=== PATIENT | male | born 1960 | race Caucasian/White ===

== ENCOUNTER 2020-01-06 18:53 | Emergency (ER) | payer MEDICARE, OTHER, SELFPAY ==
[2020-01-06 19:19] VITALS: BP 150/85; PULSE 109; RESP 18; TEMP 37.1; O2SAT 100; BMI 24.0
--- NOTE | 2020-01-06 21:11 | ED_ITS ---
HPI - General Adult General Chief complaint: General Medical Stated complaint: fever, diarrhea Time Seen by Provider: 01/06/20 21:11 Source: patient Mode of arrival: ambulatory Limitations: no limitations History of Present Illness HPI narrative: pt with no significant pmhx been having nausea for last 3 days, vomited an had few diarrhea 2 days ago, eating well now , no abd pain, no one sick with covid, no resp symptoms , had low grade fever Onset (ago): day(s) (3) Related Data Previous Rx's Medication Instructions Recorded ondansetron 4 mg PO Q6H PRN #10 tab 01/06/20 Allergies Allergy/AdvReac Type Severity Reaction Status Date / Time No Known Allergies Allergy Unverified 01/05/20 16:08 Review of Systems Review of Systems: Yes all other systems are reviewed and are negative Constitutional: Constitutional: Reports body ache(s) and Reports fever(s) ENT: Reports system reviewed and no additional complaints, except as documented Cardiovascular: Cardiovascular: Reports no additional cardiovascular complaints Respiratory: Respiratory: Reports no additional respiratory complaints Gastrointestinal: Gastrointestinal: Reports as per HPI Genitourinary: Genitourinary: Reports no additional male genitourinary complaints Musculoskeletal: Musculoskeletal: Reports no additional musculoskeletal complaints [facility] Past Medical History Medical History GERD (gastroesophageal reflux disease) HTN (hypertension) Social History Social History Alcohol intake: never Smoking Status: Current every day smoker Use of substances other than those prescribed or required for medical reasons: No Advance Directives: No Advance Directives Information Provided: No Physical Exam Vital Signs: Vital Signs: Last Vital Signs Temp 98.8 F 01/06/20 21:41 Pulse 95 01/06/20 21:41 Resp 18 01/06/20 21:41 BP 147/87 H 01/06/20 21:41 Pulse Ox 96 01/06/20 21:41 Body Mass Index 24.0 Const: General: cooperative, healthy appearing and comfortable Nutritional Appearance: average body habitus Orientation/consciousness: oriented to person, oriented to place and oriented to time Limitations: no limitations HENMT: Head: Yes normal to inspection Ears: hearing grossly normal bilaterally General nose exam: Normal external nose present Face and sinus: Yes normal facial exam Mouth: Normal oral and palatal mucosa present Resp: Effort & Inspection: normal respiratory effort Auscultation: clear to auscultation bilaterally Cardio: Palpation: normal PMI Rate: regular rate Rhythm: regular rhythm Heart sounds: S1 normal heart sound present and S2 normal heart sound present GI: Palpation (GI): Soft to palpation, nontender, no guarding, hepatosplenomegaly present, no hernias and no masses Auscultation: normal bowel sounds Rectal Exam - Male: Yes deferred : General: Yes no CVA tenderness Back/Spine/Pelvis: Back: no CVA tenderness Neuro: General: oriented to person, oriented to place and oriented to time Course Course Course Narrative: patient with mild symptoms COVID negative discharge him home on [facility] Medical Decision Making Lab Data Labs: Lab Results 01/06/20 Range/Units 21:39 COVID-19 ([facility]) Negative (Negative) COVID-19 Clin Com See Note Discharge Plan Discharge Clinical Impression: Gastroenteritis Patient Disposition: Home, Self-Care Instructions: Acute Nausea and Vomiting (ED) Additional Instructions: drink plenty of fluids Prescriptions: New ondansetron 4 mg tablet,disintegrating 4 mg PO Q6H PRN (Reason: nausea and vomiting) Qty: 10 RF: 0 Interventions: ED Discharge Assessment Last Done: 01/06/20 22:37 Discharge Date/Time: 01/06/20 22:37
[2020-01-06 21:41] VITALS: BP 147/87; PULSE 95; RESP 18; TEMP 37.1; O2SAT 96
[2020-01-06 22:14] LABS: COVID-19 Test Negative (Negative)
== END 2020-01-06 22:37 | disposition home or self-care (01) ==
PROVIDERS: Emergency Provider Internal Medicine; PCP Internal Medicine
DX: K52.9 Noninfective gastroenteritis and colitis, unspecified (principal); R50.9 Fever, unspecified; Z79.899 Other long term (current) drug therapy; F17.200 Nicotine dependence, unspecified, uncomplicated; Z71.6 Tobacco abuse counseling; Z20.828 Contact with and (suspected) exposure to other viral communicable diseases
CPT/HCPCS: 87635; 99284

== ENCOUNTER 2020-01-09 08:40 | Day surgery (SDC) | payer MEDICARE, OTHER, SELFPAY ==
[2020-01-07 09:52] VITALS: BMI 24.3
[2020-01-09 09:26] VITALS: BP 153/92; PULSE 80; RESP 18; TEMP 36.1; O2SAT 97
[2020-01-09 11:06] VITALS: BP 112/77; PULSE 88; RESP 16; TEMP 36.6; O2SAT 97
--- NOTE | 2020-01-09 11:14 | PC.NURSE ---
1111 DR BRAN IN AT BEDSIDE SPEAKING WITH PT RE EXAM PT WAKING MORE WARM BLANKET GIVEN COOL, DENIES CRAMPING AT PRESENT
[2020-01-09 11:20] VITALS: BP 123/96; PULSE 80; RESP 16; O2SAT 99
--- NOTE | 2020-01-09 11:21 | PM.OP ---
Brief Operative Note Date of Service: 01/09/20 Pre-op diagnosis: Screening Post-op diagnosis: other (Diverticulosis, Internal hemorrhoids) Procedure: Colonoscopy to the cecum and TI Surgeon: Leonidas Box Anesthesia: MAC Estimated blood loss (mL): 0 Pathology: none sent Condition: stable Disposition: PACU
--- NOTE | 2020-01-09 11:34 | PC.NURSE ---
1128 AWAKE ALERT NO TYLENOL AVAILABLE FOR [facility] PLAN TO HAVE A COFFEE IN DISCH. MONITORS AND IVF DC'D ASST OOB TO CH STEADY, IV DC'D MUCH PRESSURE TO CONTROL BLEEDING DRESSED SELF AT BS CALL LOVE IN REACH REPORT TO SANYA KINNEY FOR TRANSFER TO DC
--- NOTE | 2020-01-09 11:42 | OP_ITS ---
SURGEON: Leonidas Box MD INDICATIONS: The patient presents for evaluation of personal history of tubular adenomas of the colon and colorectal cancer screening. Full consent has been obtained from him for the procedure, including risks of bleeding and perforation. PREOPERATIVE DIAGNOSIS: POSTOPERATIVE DIAGNOSIS: PROCEDURE PERFORMED: Colonoscopy to the cecum and terminal ileum. ESTIMATED BLOOD LOSS: COMPLICATIONS: ANESTHESIA: Monitored anesthesia care. ASSISTANTS: SPECIMENS: PREOPERATIVE DIAGNOSES: Colorectal cancer screening and personal history of tubular adenomas of the colon. POSTOPERATIVE DIAGNOSES: Colorectal cancer screening and personal history of tubular adenomas of the colon, diverticulosis, and internal hemorrhoids. DESCRIPTION OF PROCEDURE: The patient was placed in the left lateral decubitus position. The digital rectal exam revealed no abnormalities. The Olympus video pediatric colonoscope was entered into the rectum and advanced easily to the cecum. Once in the cecum, I did identify normal-appearing cecal pouch with appendiceal orifice and a normal-appearing ileocecal valve. The terminal ileum was cannulated and appeared normal. The scope was withdrawn back into the colon. The entire cecum and ileocecal valve appeared normal. The scope was slowly withdrawn assessing all mucosal surfaces carefully. Preparation was excellent. I did not visualize any sign of polyps, colitis, nor angiodysplasia. There was a mild amount of sigmoid diverticulosis. In the rectum, scope was retroflexed visualizing internal hemorrhoids, but no other pathology. The rectal mucosa appeared normal. The scope was straightened and withdrawn from the patient. He tolerated the procedure well and was returned to the recovery area in stable condition. IMPRESSION: 1. Diverticulosis. 2. Internal hemorrhoids. PLAN: Given the previous history of tubular adenomas, I would recommend a followup colonoscopy in 5 years for further screening. He will otherwise see me on a p.r.n. basis. MD SHANTAL Bueno/PHILL / [id number]
--- NOTE | 2020-01-09 11:49 | HO.POSTANES ---
Post Anesthesia Evaluation Post Anesthesia Evaluation Vital Signs: Vital Signs Temp Pulse Resp BP Pulse Ox 01/09/20 11:20 97.8 F 80 16 123/96 H 99 01/09/20 11:06 97.8 F 88 16 112/77 97 01/09/20 09:26 96.9 F 80 18 153/92 H 97 Anesthesia: Monitored Mental Status: Awake Pain Control: Satisfactory Nausea/Vomiting: None Hydration: Adequate Anesthesia-Related Issues: No Anes. Related Issues
== END 2020-01-09 12:03 | disposition home or self-care (01) ==
PROVIDERS: PCP Internal Medicine; Visit Provider Internal Medicine
PROC: 0DJD8ZZ Inspection of Lower Intestinal Tract, Via Natural or Artificial Opening Endoscopic (ICD-10-PCS; CPT 45378; principal; 2020-01-09 10:20)
DX: Z12.11 Encounter for screening for malignant neoplasm of colon (principal); Z86.010 Personal history of colon polyps; K57.30 Diverticulosis of large intestine without perforation or abscess without bleeding; K64.8 Other hemorrhoids; K21.9 Gastro-esophageal reflux disease without esophagitis; I10 Essential (primary) hypertension; Q85.00 Neurofibromatosis, unspecified; R51.9 Headache, unspecified; Z79.82 Long term (current) use of aspirin; F17.210 Nicotine dependence, cigarettes, uncomplicated; Z79.899 Other long term (current) drug therapy
CPT/HCPCS: G0105

== ENCOUNTER 2020-06-12 11:51 | Outpatient (REF) | payer MEDICARE, OTHER, SELFPAY ==
[2020-06-12 13:53] LABS: MANUAL DIFF FLAG NO
[2020-06-12 13:55] LABS: Glucose Urine UA NEG (NEG); Leukocyte Esterase Urine NEG (NEG); Nitrite Urine NEG (NEG); Specific Gravity - Urine 1.015 (1.005-1.025); Urine Blood 3+ (NEG); Urine Ketones NEG (NEG); Urine Protein NEG (NEG-TRACE)
[2020-06-12 13:57] LABS: Basophils Absolute Auto 0.1 X10*3/uL (0.0-0.2); Basophils Percent Auto 0.9 % (0-2); Eosinophils Absolute Auto 0.2 X10*3/uL (0.0-0.4); Eosinophils Percent Auto 1.9 % (0-4); Hematocrit 39.5 % (42-52); Hemoglobin 12.9 g/dl (14.0-18.0); Imm Gran Abs Auto 0.05 X10*3/uL (0.00-0.03); Imm Gran Pct Auto 0.5 % (0.0-0.4); Lymphocytes Absolute Auto 1.6 X10*3/uL (1.2-4.9); Mean Corpuscular HGB Conc 32.7 g/dl (31.0-36.0); Mean Corpuscular Hemoglobin 31.2 pg (27.0-33.0); Mean Corpuscular Volume 95.6 fL (80-98); Mean Platelet Volume 10.4 fL (9.4-12.4); Monocytes Absolute Auto 0.8 X10*3/uL (0.1-1.2); Monocytes Percent Auto 7.4 % (2-11); Neutrophils Absolute Auto 7.7 X10*3/uL (2.0-8.3); Neutrophils Percent Auto 74.3 % (45-73); Platelet Count 338 X10*3/uL (160-400); Red Blood Count 4.13 X10*6/uL (4.60-5.80); Red Cell Distribution Width 12.6 % (11.0-16.0); White Blood Count 10.4 X10*3/uL (4.8-10.8)
[2020-06-12 13:58] LABS: Appearance Urine CLEAR; Color Urine YELLOW
[2020-06-12 14:02] LABS: RBC Urine 50-75 /HPF (0); WBC Urine 0-2 /HPF (0-4)
[2020-06-12 14:16] LABS: Alanine Aminotransferase 11 U/L (0-40); Alkaline Phosphatase 79 U/L (39-117); Anion Gap 13 (12-20); Aspartate Amino Transferase 10 U/L (5-37); Bilirubin Total 0.5 mg/dL (0.0-1.0); Blood Urea Nitrogen 10 mg/dL (9-16); Calcium 9.1 mg/dL (8.4-10.2); Carbon Dioxide 23 mmol/L (22-29); Chloride 106 mmol/L (96-108); Cholesterol 166 mg/dL; Estimated Glomerular Filt Rate > 60; Glucose Fasting 86 mg/dL (60-99); HDL Cholesterol 47 mg/dL; LDL Cholesterol Calculated 105 mg/dl; Potassium 4.3 mmol/L (3.3-5.1); Sodium 138 mmol/L (135-145); Total Protein 6.7 g/dL (6.5-8.0); Triglycerides 71 mg/dL
[2020-06-12 14:40] LABS: Prostate Specific Antigen Scr 0.57 ng/mL (<0.05-4.0)
== END 2020-06-12 11:52 | disposition home or self-care (01) ==
LOC: HO.LAB 11:51
PROVIDERS: PCP Internal Medicine; Visit Provider Internal Medicine
DX: I10 Essential (primary) hypertension (principal); K21.9 Gastro-esophageal reflux disease without esophagitis; K57.90 Diverticulosis of intestine, part unspecified, without perforation or abscess without bleeding; Z82.49 Family history of ischemic heart disease and other diseases of the circulatory system; Z12.5 Encounter for screening for malignant neoplasm of prostate
CPT/HCPCS: 36415; 80053; 80061; 81001; 84153; 85025

== ENCOUNTER 2021-07-10 | Outpatient (REF) | payer OTHER, SELFPAY ==
--- NOTE | ~2021-07-10 | XR_ITS ---
EXAMINATION: XR CHEST CLINICAL INFORMATION: Weight loss. Hypertension. COMPARISON: Chest radiograph dated from 02/26/2015. TECHNIQUE: 2 views of the chest were obtained. FINDINGS: Progression of interstitial thickening and scarring when compared to 2016. No focal consolidation. No pleural effusion or pneumothorax. Stable 0.6 cm nodule in the right apex. Questionable new 0.7 cm nodule in the right midlung zone. Symmetric nipple shadows. Normal appearance of the cardiomediastinal silhouette. No acute osseous abnormalities. The visualized upper abdomen is within normal limits. XR/XR chest 2V IMPRESSION: Worsening interstitial thickening and scarring with a questionable new nodularity in the right mid lung. Recommend correlation with a nonemergent elective chest CT. No focal consolidation. Clear pleural spaces.
[2021-07-10 12:12] LABS: MANUAL DIFF FLAG NO
[2021-07-10 13:50] LABS: Basophils Absolute Auto 0.1 X10*3/uL (0.0-0.2); Basophils Percent Auto 0.5 % (0-2); Eosinophils Percent Auto 0.3 % (0-4); Hematocrit 43.1 % (42.0-52.0); Hemoglobin 14.2 g/dl (14.0-18.0); Imm Gran Abs Auto 0.02 X10*3/uL (0.00-0.03); Imm Gran Pct Auto 0.2 % (0.0-0.4); Lymphocytes Absolute Auto 1.7 X10*3/uL (1.2-4.9); Lymphocytes Percent Auto 16.1 % (20-40); Mean Corpuscular HGB Conc 32.9 g/dl (31.0-36.0); Mean Corpuscular Hemoglobin 32.1 pg (27.0-33.0); Mean Corpuscular Volume 97.3 fL (80.0-98.0); Monocytes Absolute Auto 0.8 X10*3/uL (0.1-1.2); Monocytes Percent Auto 7.4 % (2-11); Neutrophils Percent Auto 75.5 % (45-73); Platelet Count 401 X10*3/uL (160-400); Red Blood Count 4.43 X10*6/uL (4.60-5.80); Red Cell Distribution Width 12.7 % (11.0-16.0); White Blood Count 10.6 X10*3/uL (4.8-10.8)
[2021-07-10 14:01] LABS: Appearance Urine HAZY; Color Urine YELLOW; Glucose Urine UA NEG (NEG); Leukocyte Esterase Urine NEG (NEG); Nitrite Urine NEG (NEG); PH 5.5 (5.0-8.0); Specific Gravity - Urine >= 1.030 (1.005-1.025); Urine Blood 3+ (NEG); Urine Ketones 15 MG/DL (NEG); Urine Protein TRACE MG/DL (NEG-TRACE)
[2021-07-10 14:07] LABS: Mucus Urine 1+ /LPF; Squamous Epithelial Cell Urine 1+ /LPF
[2021-07-10 14:08] LABS: WBC Urine 0 /HPF (0-4)
[2021-07-10 14:13] LABS: Alanine Aminotransferase 10 U/L (0-40); Albumin Level 4.6 g/dL (3.5-5.0); Alkaline Phosphatase 70 U/L (39-117); Anion Gap 16 (12-20); Aspartate Amino Transferase 9 U/L (5-37); Bilirubin Total 0.5 mg/dL (0.0-1.0); Blood Urea Nitrogen 22 mg/dL (9-16); C Reactive Protein 0.91 mg/dL (< or = 0.50); Calcium 9.9 mg/dL (8.4-10.2); Carbon Dioxide 19 mmol/L (22-29); Chloride 108 mmol/L (96-108); Estimated Glomerular Filt Rate > 60; Glucose Random 96 mg/dL (60-115); Potassium 4.5 mmol/L (3.3-5.1); Sodium 138 mmol/L (135-145); Total Protein 7.7 g/dL (6.5-8.0)
[2021-07-10 14:37] LABS: Free T4 (Free Thyroxine) 0.87 ng/dL (0.71-1.85); Prostate Specific Antigen 0.34 ng/mL (<0.05-4.0); Thyroid Stimulating Hormone 1.42 uIU/mL (0.32-4.0)
== END 2021-07-10 00:01 ==
LOC: HO.XRAY
PROVIDERS: PCP Internal Medicine; Visit Provider Internal Medicine
DX: R63.4 Abnormal weight loss (principal); I10 Essential (primary) hypertension; J44.9 Chronic obstructive pulmonary disease, unspecified; K21.9 Gastro-esophageal reflux disease without esophagitis; Z12.5 Encounter for screening for malignant neoplasm of prostate
CPT/HCPCS: 36415; 71046; 80053; 81001; 81003; 84153; 84439; 84443; 85025; 86140

== ENCOUNTER 2021-07-27 08:05 | Outpatient (REF) | payer OTHER, MEDICAID, SELFPAY ==
--- NOTE | ~2021-07-27 | CT_ITS ---
EXAMINATION: CT CHEST WITHOUT CONTRAST CLINICAL INFORMATION: Weight loss. Abnormal chest x-ray. COMPARISON: Previous chest x-ray most recent June 2021 TECHNIQUE: Multidetector volumetric CT imaging of the chest was done. Axial MIP volume rendering provided. Sagittal and coronal reformatted images were obtained. This CT examination was performed using dose optimization techniques as appropriate, variously including the following: *Automated exposure control *Adjustment of mA and/or kV according to patient size (this includes techniques or standardized protocols for targeted exams where dose is matched to indication/reason for exam; i.e. extremities or head) *Use of iterative reconstruction technique DLP: 175 mGy-cm FINDINGS: LUNGS: There is evidence of severe paraseptal emphysema with bullous changes. This is seen diffusely throughout the lungs but greatest in the upper lobes. There is also evidence of multiple small lung cysts. There is a linear abnormal parenchymal density seen in the left upper lobe. This has spicules that extend to the lateral pleural surface and adjacent pleural thickening. This has a 1 x 1.4 cm central nodular component for example axial image 103 series 7. This appears slightly low in attenuation. There is right apical pleural thickening. 1 mm calcified left upper lobe nodule axial image 314 series 7. No endobronchial or endotracheal lesion. MEDIASTINUM: The mediastinum is normal. PLEURA: There is mild pleural thickening adjacent to the parenchymal density in the left upper lobe. No pleural effusion. AXILLA: No chest wall mass or enlarged axillary lymph nodes. Multiple moles on the skin. UPPER ABDOMEN: See CT of the abdomen and pelvis. OSSEOUS STRUCTURES: Pectus deformity of the chest. CT/CT chest wo con IMPRESSION: Severe bullous emphysema and cystic changes. Abnormal linear parenchymal density in the left upper lobe with central nodular component measuring 1 x 1.4 cm. Comparison with old outside chest CT scans if available is recommended. Otherwise chest CT follow-up, tissue sampling or PET/CT scan should be considered. Fleischner guidelines were followed.
--- NOTE | ~2021-07-27 | CT_ITS ---
EXAMINATION: CT ABDOMEN AND PELVIS WITHOUT CONTRAST CLINICAL INFORMATION: Weight loss. Hematuria. COMPARISON: Previous CT from 2015 TECHNIQUE: Multidetector volumetric imaging was performed from the superior aspect of the liver through the pubic symphysis. Sagittal and coronal reformatted images were obtained on the technologist's workstation. This CT examination was performed using dose optimization techniques as appropriate, variously including the following: *Automated exposure control *Adjustment of mA and/or kV according to patient size (this includes techniques or standardized protocols for targeted exams where dose is matched to indication/reason for exam; i.e. extremities or head) *Use of iterative reconstruction technique DLP: 313 mGy-cm FINDINGS: LUNG BASES: See chest CT report from the same day. LIVER, GALLBLADDER, AND BILIARY TREE: There is a 1 cm low-attenuation lesion in the medial segment of the left lobe of the liver suggestive of a cyst. The liver is otherwise unremarkable. The gallbladder is unremarkable with no evidence of radiopaque gallstones, gallbladder wall thickening, or obvious pericholecystic inflammatory changes. PANCREAS: Unremarkable. SPLEEN: Unremarkable. ADRENAL GLANDS: Unremarkable. KIDNEYS AND URETERS: There are small bilateral renal stones, largest measuring 2 mm. There is a 3 x 4 cm cyst in the lower pole of the left kidney. Kidneys are otherwise normal. BLADDER: Not optimally distended. No bladder stone or mass is seen. GASTROINTESTINAL TRACT: There is stool throughout the colon suggestive of constipation. The small and large bowel are otherwise unremarkable. The appendix is unremarkable. ABDOMINAL WALL: There is a 1 x 1.5 cm cystic area seen in the right inguinal region. Appearance is questionable for a cystic degeneration lymph node versus a small hernia containing fluid. There are multiple subcutaneous skin lesions. These appear unchanged from previous exam. 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 LYMPH NODES: Normal. VASCULAR: There is evidence of atherosclerotic disease. No aneurysm is seen. PELVIC VISCERA: Unremarkable. OSSEOUS STRUCTURES: There is evidence of old trauma to the right iliac crest. CT/CT abdomen pelvis wo con IMPRESSION: Small nonobstructing bilateral renal stones. Left renal and liver cysts. Constipation. 1 x 1.5 cm cystic area in the right inguinal region, question representing a small hernia containing fluid versus cystic degeneration of the lymph node. This could be better assessed with ultrasound if clinically indicated. Stable on multiple skin lesions. Fleischner guidelines were followed.
== END 2021-07-27 08:06 | disposition home or self-care (01) ==
LOC: HO.CT 08:05
PROVIDERS: Visit Provider Internal Medicine
DX: R31.9 Hematuria, unspecified (principal); R63.4 Abnormal weight loss
CPT/HCPCS: 71250; 74176

== ENCOUNTER 2021-08-18 07:22 | Outpatient (REF) | payer OTHER, SELFPAY ==
--- NOTE | ~2021-08-18 | PE_ITS ---
EXAMINATION: Fluorine-18 FDG PET/CT Scan CLINICAL INDICATION: Initial treatment management. Left upper lobe 1.4 cm lung tumor. PROCEDURE: 69 minutes following the intravenous administration of 16.1 mCi of fluorine 18 FDG, images from the base of the skull to the mid thighs were obtained using a combined PET/CT scanner with CT scan based attenuation correction. No oral contrast was administered. No intravenous contrast was administered. Transverse, coronal, sagittal, and volume reconstruction projections were obtained. The patient's blood glucose as determined by a finger stick, was 92 mg/dl immediately prior to injection. Total CT exam dose-length product 197.10 mGy-cm * These CT images were obtained using dose optimization techniques as appropriate, variously including the following: Automated exposure control * Adjustment of mA and/or kV according to patient size (this includes techniques or standardized protocols for targeted exams where dose is matched to indication/reason for exam; i.e. extremities or head) * Use of iterative reconstruction technique COMPARISON: No previous PET/CT scan is available for comparison. The diagnostic CT scan of the chest, abdomen, and pelvis, dated 07/27/2021, is available for comparison. FINDINGS: (Slice numbers described in this report are numbered superiorly to inferiorly with slice #1 in the head) NECK AND VISUALIZED HEAD: No foci of abnormal FDG activity are noted. The distribution of FDG activity is physiological. There is no cervical lymphadenopathy. THORAX: There is a spiculated left upper lobe pulmonary nodule that measures 1.3 x 1.0 cm in largest transverse dimensions, and approximately 0.9 cm cephalocaudad. This shows weak FDG activity minimally more intense than adjacent background lung activity showing SUVmax 1.0, slice 68/267. Spiculations from this nodule extent to the lateral pleura. A nodule arises in the setting of severe emphysema. The appearance of the lungs is not significantly changed compared to the recent 07/27/[address] scan. There is no pleural or pericardial fluid, or pneumothorax. There is no mediastinal, supraclavicular, or axillary lymphadenopathy. ABDOMEN AND PELVIS: There are no foci of abnormal FDG activity in the abdomen or pelvis. Mild FDG activity is present diffusely throughout the gastrointestinal tract without a suspicious focal component. There is diverticulosis without evidence of diverticulitis. The hollow viscera are otherwise unremarkable. There is a 1.0 cm hypodense lesion in liver Couinaud segment 2, subtly photopenic on the FDG PET images and unchanged from the 07/27/2021 CT scan and likely a simple cyst. The liver is otherwise unremarkable. The gallbladder and spleen are unremarkable. There is a hypodense cyst laterally in the lower pole of the left kidney and this is markedly photopenic on the FDG PET images and also likely a simple cyst. Small subcentimeter bilateral calcified renal calculi are present, and these were better visualized on the 07/27/[address] scan but appear unchanged. The kidneys are otherwise unremarkable. The adrenal glands and pancreas are unremarkable. There is no retroperitoneal, mesenteric, pelvic or inguinal lymphadenopathy. The pelvic organs are unremarkable. MUSCULOSKELETAL: There are no foci of abnormal FDG activity in the osseous structures. There are mild degenerative changes in the spine. No suspicious sclerotic or lytic lesions are present. VASCULAR: A few scattered vascular calcifications are present. PET/PET CT fusion skull to thigh IMPRESSION: 1. A spiculated left upper lobe pulmonary nodule is present, and this shows only very weak FDG activity. While the weak FDG activity suggests a benign etiology, the spiculated appearance of this nodule on the CT images is suspicious for malignancy. Because approximately 10% of pulmonary malignancies demonstrate no abnormal FDG activity, if biopsy of this nodule is not obtained, followup with diagnostic CT scan in 3-6 months is recommended. 2. No additional abnormalities suspicious for metastatic or other malignant lesions are noted. 3. Small subcentimeter nonobstructing nephrolithiasis.
== END 2021-08-18 07:23 | disposition home or self-care (01) ==
LOC: HO.PET 07:22
PROVIDERS: PCP Internal Medicine Medical Oncology; Visit Provider Internal Medicine Medical Oncology
DX: Z13.89 Encounter for screening for other disorder (principal)

== ENCOUNTER → 2021-08-28 09:18 | Outpatient (BNVA) | payer OTHER, MEDICAID, SELFPAY | PROVIDERS: PCP Internal Medicine; Visit Provider Surgery | DX: R91.1 Solitary pulmonary nodule (principal); J43.8 Other emphysema; F17.210 Nicotine dependence, cigarettes, uncomplicated | CPT/HCPCS: 99202 ==

== ENCOUNTER 2021-09-02 14:11 | Outpatient (REF) | payer OTHER, MEDICAID, SELFPAY ==
--- NOTE | 2021-09-02 15:18 | PFT_ITS ---
Forced vital capacity 85%, FEV1 77%, FEV1/FVC ratio is 68. GSP23-46 58% and MVV 76%. Post bronchodilator therapy, there is a slight improvement in [id number]. Total lung capacity 96%. Residual volume 117%. Diffusion capacity is 37%, which is markedly decreased. CONCLUSION: There is evidence of mild obstructive airway disorder with slight improvement after bronchodilator therapy. Marked decrease in diffusion capacity, is somewhat out of proportion through the other findings. This may be due to nonspecific and non-pulmonary factors. Clinical correlation is recommended. Kylie García MD MSB/MODL / [id number]
== END 2021-09-02 14:12 | disposition home or self-care (01) ==
LOC: HO.RESP 14:11
PROVIDERS: PCP Internal Medicine; Visit Provider Surgery
DX: R91.1 Solitary pulmonary nodule (principal); J43.8 Other emphysema
CPT/HCPCS: 94060; 94727; 94729

== ENCOUNTER → 2021-09-07 09:33 | Outpatient (REF) | payer OTHER, MEDICAID, SELFPAY ==
--- NOTE | ~2021-09-07 | XR_ITS ---
EXAMINATION: XR CHEST CLINICAL INFORMATION: Emphysema COMPARISON: 07/12/2021 TECHNIQUE: 2 views of the chest were obtained. FINDINGS: Emphysema. Stable biapical pleural-parenchymal scarring. Spiculated nodule at left lung apex redemonstrated. No focal consolidation. Multiple rounded skin lesion is redemonstrated along the chest wall as better seen on prior CT. XR/XR chest 2V IMPRESSION: Emphysema. No acute findings. Spiculated nodule at left lung apex. The patient will be getting short interval follow-up CT chest in 306 months.
--- NOTE | ~2021-09-07 | NM_ITS ---
EXAMINATION: PULMONARY VENTILATION PERFUSION STUDY CLINICAL INFORMATION: 61-year-old male found to have spiculated left upper lobar 1.4 cm lung nodule. The patient has history of emphysema. Presurgical evaluation. COMPARISON: CT of the chest done on 07/27/[address] study done on 08/18/2021 and most recent prior chest radiograph done on 09/07/2021. TECHNIQUE: The patient received 4.0 mCi Tc-99m MAA intravenously and a 8-view perfusion study was performed. Differential counts were obtained from the anterior and posterior views, and a combined image using the geometric mean was generated. The percentage relative activity of each lung as well as the relative activity within the upper, mid and lower lung keys were calculated. FINDINGS: The perfusion images shows relative decreased perfusion to both upper lobes as compared to the right middle and both lower lobes, concordant with prior CT of the chest done on 07/27/2021. In addition, linear bilateral photopenic defects are also noted, distributed along the expected course of the pleural fissures, although typically seen in patient with pleural effusion however, in this particular patient given the extensive emphysematous disease likely represent changes secondary to underlying emphysema. The calculated relative percentage in each lung, and the geometric mean of the anterior and posterior perfusion images, the relative activity in the upper, mid, and lower lung keys was determined using horizontal lines these lung keys approximately equally, and are as follows: On the perfusion images, the total activity is: Left lung 45.2% and right lung 54.8%. LEFT: Upper lung field 3.2%. Mid lung field 22.3%. Lower lung field 19.7% RIGHT: Upper lung field 3.7%. Mid lung field 28.1% Lower lung field 23.0%. NM/NM pul perf bambi dif w image IMPRESSION: 1. Abnormal study showing significant decreased perfusion to both upper lobes of the lung, when correlating with prior CT of the chest dated 07/27/2021, the findings are consistent with significant emphysematous disease predominantly involving both upper lobes. 2. The relative percentage of perfusion to the left lung is 45.2 and the right lung is 54.8. 3. The relative percentages of perfusion to the the upper, mid and lower lung keys bilaterally are given as above.
== END ==
LOC: HO.NUCMED 09:33
PROVIDERS: PCP Internal Medicine; Visit Provider Surgery
DX: J43.8 Other emphysema (principal); R91.1 Solitary pulmonary nodule
CPT/HCPCS: 71046; 78597; A9540

== ENCOUNTER → 2021-09-11 10:41 | Outpatient (BNVA) | payer OTHER, SELFPAY | PROVIDERS: PCP Internal Medicine; Visit Provider Surgery | DX: R91.1 Solitary pulmonary nodule (principal); J43.8 Other emphysema; Z87.891 Personal history of nicotine dependence | CPT/HCPCS: 99212 ==

== ENCOUNTER 2022-03-10 11:58 | Outpatient (REF) | payer MEDICARE, SELFPAY ==
--- NOTE | ~2022-03-10 | CT_ITS ---
EXAMINATION: CT CHEST WITHOUT CONTRAST CLINICAL INFORMATION: Solitary pulmonary nodule COMPARISON: PET CT 08/18/2021. Prior chest CT 07/27/2021 TECHNIQUE: Multidetector volumetric CT imaging of the chest was done. Axial MIP volume rendering provided. Sagittal and coronal reformatted images were obtained. This CT examination was performed using dose optimization techniques as appropriate, variously including the following: *Automated exposure control *Adjustment of mA and/or kV according to patient size (this includes techniques or standardized protocols for targeted exams where dose is matched to indication/reason for exam; i.e. extremities or head) *Use of iterative reconstruction technique DLP: 213 mGy-cm FINDINGS: HOB GRINDER: Symmetrically expanded lungs. LUNGS: Markedly severe emphysema with numerous paraseptal bullae in the bilateral upper lobes. Again seen is an irregular nodular density in the periphery of the left upper lobe at the left lung apex series 5 image 81/591. The nodular solid component measures 1.4 cm x 1.0 cm, not convincingly changed from the prior study. Again seen are spiculations extending to the lateral pleural surface with associated pleural thickening. The nodule is seen at the confluence of several adjacent bulla. No new focal consolidation, nodules, or masses seen. MEDIASTINUM: Normal size mediastinal lymph nodes are present. No pathologically enlarged hilar or mediastinal lymphadenopathy. Normal heart size. Normal caliber thoracic aorta. CORONARY ARTERY CALCIFICATION: None visualized on this study. PLEURA: There is mild pleural thickening lateral to the left upper lobe nodule described above. No pleural effusion or pneumothorax. AXILLA: No lymphadenopathy. UPPER ABDOMEN: No adrenal mass. Unchanged simple hepatic cyst along the anterior margin of the left lobe of liver for which no imaging follow-up is recommended. OSSEOUS STRUCTURES: Mild multilevel degenerative changes of the thoracolumbar spine. No acute or suspicious osseous abnormality. CT/CT chest wo IV con IMPRESSION: Similar appearance of 1.4 x 1.0 cm irregular spiculated nodular density in the lateral periphery of the left upper lobe at the left lung apex, at the confluence of several large bulla. This was previously evaluated by PET CT with very weak FDG avidity, reassuring but not diagnostic of a benign or indolent etiology. Recommend continued attention on follow-up. Fleischner guidelines were followed.
== END 2022-03-10 11:59 | disposition home or self-care (01) ==
LOC: HO.CT 11:58
PROVIDERS: PCP Internal Medicine; Visit Provider Surgery
DX: R91.1 Solitary pulmonary nodule (principal)
CPT/HCPCS: 71250

== ENCOUNTER → 2022-03-19 09:15 | Outpatient (BNVA) | payer MEDICARE, SELFPAY | PROVIDERS: PCP Internal Medicine; Visit Provider Surgery | DX: R91.1 Solitary pulmonary nodule (principal); Z71.6 Tobacco abuse counseling; F17.210 Nicotine dependence, cigarettes, uncomplicated | CPT/HCPCS: 99212 ==

== ENCOUNTER 2022-10-04 08:29 | Outpatient (REF) | payer MEDICARE, MEDICAID, SELFPAY ==
--- NOTE | ~2022-10-04 | CT_ITS ---
EXAMINATION: CT CHEST WITHOUT CONTRAST CLINICAL INFORMATION: Solitary pulmonary nodule COMPARISON: Previous chest CT February 2022 TECHNIQUE: Multidetector volumetric CT imaging of the chest was done. Axial MIP volume rendering provided. Sagittal and coronal reformatted images were obtained. This CT examination was performed using dose optimization techniques as appropriate, variously including the following: *Automated exposure control *Adjustment of mA and/or kV according to patient size (this includes techniques or standardized protocols for targeted exams where dose is matched to indication/reason for exam; i.e. extremities or head) *Use of iterative reconstruction technique DLP: 100 mGy-cm FINDINGS: LUNGS: Severe paraseptal and centrilobular emphysema. Cystic changes at the lung bases. Large bilateral upper lobe bulla. Irregularly-shaped abnormal parenchymal density in the central left upper lobe. This is difficult to measure given irregular shape. This measures 1.2 x 3.2 cm in transverse and AP dimension axial image 142 series 5. This has anterior spicules extending to the pleural surface and abuts the mediastinum/aortic arch. This is new from previous exam. There is an adjacent more peripheral left upper lobe nodule measuring 10 x 13 mm axial image 120 series 5 that is stable. Dependent increased attenuation mixed with Air seen in the trachea and left mainstem bronchus probably representing patient secretions. MEDIASTINUM: Small mediastinal lymph nodes. No enlarged lymph nodes. Normal heart size. No pericardial effusion. Upper normal caliber thoracic aorta. CORONARY ARTERY CALCIFICATION: None visualized on this study. PLEURA: There is no pleural effusion. No pleural mass or thickening. AXILLA: No lymphadenopathy. Numerous small skin nodules. Clinical correlation recommended. Prior MRA of the abdomen indicates history of neurofibromatosis and these may represent neurofibromas. UPPER ABDOMEN: Stable small low-attenuation liver lesion in the medial segment of the left lobe of the liver probably representing a cyst. OSSEOUS STRUCTURES: There are degenerative changes of the spine. CT/CT chest wo IV con IMPRESSION: Severe bullous emphysema. Cystic changes at the lung bases. Irregular nodule or parenchymal density in the central left upper lobe. Follow-up PET/CT scan or short-term chest CT follow-up should be considered. Stable peripheral left upper lobe nodule measuring 1 x 1.3 cm. Fleischner guidelines were followed.
== END 2022-10-04 08:30 | disposition home or self-care (01) ==
LOC: HO.CT 08:29
PROVIDERS: PCP Internal Medicine; Visit Provider Surgery
DX: R91.1 Solitary pulmonary nodule (principal)
CPT/HCPCS: 71250

== ENCOUNTER 2022-10-08 10:04 | Outpatient (AMB) | payer MEDICARE, SELFPAY ==
[2022-10-08 10:48] VITALS: BP 130/70; PULSE 76; O2SAT 99
--- NOTE | 2022-10-08 10:48 | MHC.OFFVIS ---
Intake Vital Signs 10/08/22 10:48 Weight 142 lb BP 130/70 Pulse 76 Pulse Oximetry (%) 99 Intake Visit Reasons: Follow up with Chest CT Allergies No Known Allergies Allergy (Mild, Verified 10/08/22 10:50) NOT APPLICABLE Medication List - Last Reconciled 10/10/22 by Radha Blanton MD aspirin 81 mg PO DAILY ibuprofen 400 mg PO Q6H PRN metoprolol succinate ER 50 mg PO DAILY nicotine 1 patch transdermal DAILY omeprazole 20 mg PO DAILY HPI Follow up with Chest CT HPI Details 62-year-old male long-time and current smoker currently smoking half pack per day but did smoke up to a pack per day who started smoking at age 13 presented initially with weight loss to his primary care physician.? He is not sure how much weight he lost but that prompted a CT scan of the chest on 07/27/2021 reviewed and interpreted by me directly showing a spiculated nodule measuring 1.4 cm in greatest dimension in the left upper lobe amidst severe emphysematous disease with large bullae particularly in the bilateral upper lobes.? There is no mediastinal lymphadenopathy and no pleural fluid.? Looking back to 2013 this lesion was there but has increased in size.? He then son oncologist to arrange for a PET scan which was done on 08/18/2021 which showed minimal to no increased uptake in the nodule itself and no increased uptake elsewhere in the chest or outside of the chest.? I then arranged for him to have pulmonary function testing and a quantitative V/Q scan.? The pulmonary function testing was done on 09/02/2021 which showed an FEV1 of 77% of predicted going up to 83% of predicted with bronchodilators and a DLCO VA of 46% of predicted.? Previous pulmonary function testing from 2016 showed an FEV1 of 86% of predicted and a DLCO VA of 53% of predicted.? Quantitative V/Q scan was done on [id number] which showed 3.2% perfusion in the left upper lung zone and 3.7% in the right upper lung zone.? This is consistent with the CT scan showing upper lobe predominant severe emphysematous disease.? He does continue to smoke but has cut down to 5 cigarettes and has been using the patch.? He is committed to stopping completely.? He set a goal for himself in the next 2 weeks.? We spent 7 minutes discussing this.? He states that his nicotine patches which are 21 mg make him feel poorly.? Another CT scan done on 03/10/2022 shows no change in the left upper lobe nodule in question.? There is no mediastinal lymphadenopathy and again severe significant upper lobe predominant emphysematous disease. Repeat CT again done on 10/04/2022 shows the nodule in question to be stable but a new nodule more centrally in the TAMIKA with an irregular shape. He does have a history his family of lung cancer his mother who in her 70s.? She was a heavy smoker.? His mother also had skin cancer and his sister had breast cancer.? He reports feeling generally in good health and since initially losing weight he has gained over the past month up to 10 lb.? He denies decreased appetite fevers chills soaking sweats or fatigue.? He denies chest pain, shortness of breath, cough, or hemoptysis.? He denies any new neurologic symptoms but does get lightheaded or dizzy at times with chronic headaches. ? ? ? [facility] Medical History Chronic headaches GERD (gastroesophageal reflux disease) HTN (hypertension) Neurofibromatosis Nicotine dependence, cigarettes, uncomplicated Tubular adenoma of colon (~2001) Surgical History History of colonoscopy History of esophagogastroduodenoscopy (EGD) History of excision of lesion History of inguinal hernia repair History of mandibular surgery Family History Mother Lung cancer Skin cancer Sister Breast cancer Social History Alcohol intake: never Patient Tobacco Use Status: Current everyday Tobacco user Tobacco use type: Cigarette Cigarettes Per Day: 10 Years Smoked: (onset 13yo, 1/2-1ppd x 48yrs, 30+PYH) Physical Exam Vital Signs: Last Vital Signs Pulse 76 10/08/22 10:48 BP 130/70 10/08/22 10:48 Pulse Ox 99 10/08/22 10:48 nad rrr ctab abd soft nl bs no edema Assessment & Plan Assessment & Plan (1) Nodule of upper lobe of left lung: Comment: (1.3x1.0x0.9cm spiculated nodule TAMIKA - SUV max 1.0 on PET 08/18/21) Code(s): R91.1 - Solitary pulmonary nodule Plan: Described his CT scan in detail and discussed pulmonary nodules in general and how their size, shape and change release manager time affect our level of suspicion for malignancy. He does have significant risk factors including his smoking obviously but also his family history. Options discussed with him were continued observation versus surgical resection which would be a lobectomy. Surgical resection would have the added benefit possibly of removing upper lobe predominant disease with relatively preserved pfts. I explained the pfts, v/q scan and his prior imaging including the pet scan. He is open to surgery but at this point will wait for a 3 month f/u ct scan and visit with me after that. All questions were answered. (2) Nicotine dependence, cigarettes, uncomplicated: Comment: (current smoker onset 13yo, 1/2-1ppd x 48yrs, 30+PYH, +fam hx lung ca) Code(s): F17.210 - Nicotine dependence, cigarettes, uncomplicated Plan: smoking cessation 7 minutes as above Orders: Orders CT chest wo IV con 3 Months R91.1 - Solitary pulmonary nodule Coding Level of Care Code Est Pt Level 4 (23966) Diagnoses Nodule of upper lobe of left lung R91.1 Nicotine dependence, cigarettes, uncomplicated F17.210 Comment smoking cessation 7 minutes and mod 57 decision for surgery please bill
== END 2022-10-08 11:15 | disposition home or self-care (01) ==
PROVIDERS: PCP Internal Medicine; Visit Provider Surgery
DX: R91.1 Solitary pulmonary nodule (principal); F17.210 Nicotine dependence, cigarettes, uncomplicated

== ENCOUNTER → 2022-10-08 10:04 | Outpatient (BNVA) | payer MEDICARE, MEDICAID, SELFPAY | PROVIDERS: PCP Internal Medicine; Visit Provider Surgery | DX: R91.1 Solitary pulmonary nodule (principal); F17.210 Nicotine dependence, cigarettes, uncomplicated; Z71.6 Tobacco abuse counseling | CPT/HCPCS: 99212 ==

== ENCOUNTER 2022-11-23 12:46 | Outpatient (AMB) | payer MEDICARE, MEDICAID, SELFPAY ==
[2022-11-23 13:09] VITALS: BP 152/81; PULSE 77; BMI 20.4
--- NOTE | 2022-11-23 13:09 | A.OFFVIS_ITS ---
Intake Vital Signs 11/23/22 13:09 Height 5 ft 10 in Weight 142 lb BMI 20.4 BP 152/81 H Blood Pressure Location Rt brachial Position Sitting Pulse 77 Intake Visit Reasons: nodule upper lobe left lung Intake Note: Patient referred for nodule on Lt lung upper lobe. Unsure how long is been present. Reports no difficulty breathing. States is down to 5 cigarettes per day. Vehicle Modification Technician Required: No Accompanied by: Self / Same As Patient Allergies No Known Allergies Allergy (Mild, Verified 11/23/22 13:11) NOT APPLICABLE HPI HPI Comments History of Present Illness Details Patient has been in the lung surveillance system. He has a left upper lobe lung nodule which has been followed for several years time. He had a recent CT scan of the chest which demonstrates the lung lesions to be status quo. Approximately year ago patient also had a PET scan which demonstrated benign pathology. Present, patient is still smoking half pack a day. He has no significant respiratory issues. He had pulmonary function tests which we will obtained, and the patient's as they were quite good. Chart was reviewed patient evaluated [facility] Medical History Nicotine dependence, cigarettes, uncomplicated Tubular adenoma of colon (~2001) Chronic headaches Neurofibromatosis GERD (gastroesophageal reflux disease) HTN (hypertension) Surgical History History of inguinal hernia repair History of excision of lesion History of colonoscopy History of esophagogastroduodenoscopy (EGD) History of mandibular surgery Family History Mother Lung cancer Skin cancer Sister Breast cancer Social History (Updated 11/23/22 @ 13:13 by BINH Astudillo) Alcohol intake: never Patient Tobacco Use Status: Current everyday Tobacco user Tobacco use type: Cigarette Cigarettes Per Day: 5 Years Smoked: (onset 13yo, 1/2-1ppd x 48yrs, 30+PYH) Physical Exam Vital Signs: Last Vital Signs Pulse 77 11/23/22 13:09 BP 152/81 H 11/23/22 13:09 BMI result Body Mass Index 20.4 HEENT Other: No obvious cervical periclavicular or axillary adenopathy. Chest Other: Chest breath sounds bilaterally, consistent with a extensive COPD. GI Other: Soft, benign Assessment & Plan Assessment & Plan (1) Nodule of upper lobe of left lung: Comment: (1.3x1.0x0.9cm spiculated nodule TAMIKA - SUV max 1.0 on PET 08/18/21) Code(s): R91.1 - Solitary pulmonary nodule (2) Paraseptal emphysema: Comment: (paraseptal emphyema/bullous lesions noted on chest CTs dating back to 2001) Code(s): J43.8 - Other emphysema (3) Nicotine dependence, cigarettes, uncomplicated: Comment: (current smoker onset 13yo, 1/2-1ppd x 48yrs, 30+PYH, +fam hx lung ca) Code(s): F17.210 - Nicotine dependence, cigarettes, uncomplicated Plan Patient is tentatively scheduled for follow-up CT scan in December 27 for the lung lesion. He will see me in 1 weeks time following the scan which will be reviewed with him. The meantime, I have strongly encouraged him to discontinue smoking. Coding Level of Care Code New Pt Level 4 (30170) Diagnoses Nodule of upper lobe of left lung R91.1 Paraseptal emphysema J43.8 Nicotine dependence, cigarettes, uncomplicated F17.210
== END 2022-11-23 13:26 | disposition home or self-care (01) ==
PROVIDERS: PCP Internal Medicine; Visit Provider Surgery
DX: R91.1 Solitary pulmonary nodule (principal); J43.8 Other emphysema; F17.210 Nicotine dependence, cigarettes, uncomplicated
CPT/HCPCS: 99204

== ENCOUNTER → 2022-11-23 12:46 | Outpatient (BNVA) | payer MEDICARE, SELFPAY | PROVIDERS: PCP Internal Medicine; Visit Provider Surgery ==

== ENCOUNTER 2022-12-03 08:12 | Outpatient (REF) | payer MEDICARE, MEDICAID, SELFPAY ==
[2022-12-03 08:29] LABS: MANUAL DIFF FLAG NO
[2022-12-03 09:25] LABS: Basophils Absolute Auto 0.1 X10*3/uL (0.0-0.2); Basophils Percent Auto 0.6 % (0-2); Eosinophils Absolute Auto 0.1 X10*3/uL (0.0-0.4); Hematocrit 47.9 % (42.0-52.0); Hemoglobin 15.6 g/dl (14.0-18.0); Imm Gran Abs Auto 0.06 X10*3/uL (0.00-0.03); Imm Gran Pct Auto 0.4 % (0.0-0.4); Lymphocytes Absolute Auto 1.8 X10*3/uL (1.2-4.9); Lymphocytes Percent Auto 12.7 % (20-40); Mean Corpuscular HGB Conc 32.6 g/dl (31.0-36.0); Mean Platelet Volume 9.1 fL (9.4-12.4); Monocytes Absolute Auto 1.1 X10*3/uL (0.1-1.2); Monocytes Percent Auto 7.3 % (2-11); Neutrophils Absolute Auto 11.2 x10*3/uL (2.0-8.3); Platelet Count 319 X10*3/uL (160-400); Red Blood Count 5.04 X10*6/uL (4.60-5.80); Red Cell Distribution Width 13.4 % (11.0-16.0); White Blood Count 14.3 X10*3/uL (4.8-10.8)
== END 2022-12-03 08:13 | disposition home or self-care (01) ==
LOC: HO.LAB 08:12
PROVIDERS: PCP Internal Medicine; Visit Provider Internal Medicine
DX: J44.9 Chronic obstructive pulmonary disease, unspecified (principal); I10 Essential (primary) hypertension
CPT/HCPCS: 36415; 80053; 85025

== ENCOUNTER 2022-12-20 08:21 | Outpatient (REF) | payer MEDICARE, MEDICAID, SELFPAY ==
[2022-12-20 09:17] LABS: Alanine Aminotransferase 6 U/L (0-40); Albumin Level 4.5 g/dL (3.5-5.0); Alkaline Phosphatase 65 U/L (39-117); Anion Gap 13 (12-20); Aspartate Amino Transferase 9 U/L (5-37); Bilirubin Total 0.4 mg/dL (0.0-1.0); Blood Urea Nitrogen 17 mg/dL (9-16); Calcium 9.8 mg/dL (8.4-10.2); Carbon Dioxide 20 mmol/L (22-29); Chloride 107 mmol/L (96-108); Cholesterol 187 mg/dL (<200); Estimated Glomerular Filt Rate > 60; Glucose Fasting 98 mg/dL (60-99); HDL Cholesterol 46 mg/dL (>40); LDL Cholesterol Calculated 106 mg/dL (<100); Potassium 4.1 mmol/L (3.3-5.1); Sodium 136 mmol/L (135-145); Total Protein 7.7 g/dL (6.5-8.0); Triglycerides 177 mg/dL (<150)
== END 2022-12-20 08:22 | disposition home or self-care (01) ==
LOC: HO.LAB 08:21
PROVIDERS: PCP Internal Medicine; Visit Provider Internal Medicine
DX: J44.9 Chronic obstructive pulmonary disease, unspecified (principal); I10 Essential (primary) hypertension; Z12.5 Encounter for screening for malignant neoplasm of prostate
CPT/HCPCS: 36415; 80053; 80061; 84153

== ENCOUNTER 2022-12-27 09:21 | Outpatient (REF) | payer MEDICARE, MEDICAID, SELFPAY ==
--- NOTE | ~2022-12-27 | CT_ITS ---
EXAMINATION: CT CHEST WITHOUT CONTRAST CLINICAL INFORMATION: Solitary pulmonary nodule COMPARISON: 10/04/2022 TECHNIQUE: Multidetector volumetric CT imaging of the chest was done. Axial MIP volume rendering provided. Sagittal and coronal reformatted images were obtained. This CT examination was performed using dose optimization techniques as appropriate, variously including the following: *Automated exposure control *Adjustment of mA and/or kV according to patient size (this includes techniques or standardized protocols for targeted exams where dose is matched to indication/reason for exam; i.e. extremities or head) *Use of iterative reconstruction technique DLP: 87 mGy-cm FINDINGS: LUNGS: There is stable severe changes of paraseptal and centrilobular emphysema with multiple cystic changes at the lung bases and bilateral upper lobes bulla and blebs. There are no lung nodules but there is scarring in the left upper lobe centrally unchanged since previous examination central airways are patent there are no bronchiectasis seen. There is scarring adjacent to the largest upper lobe bulla unchanged since previous examination, approximately 1.0 x 1.1 x 1.2 cm, difficult to measure due to irregularity MEDIASTINUM: There is mildly prominent thyroid gland isthmus. There is no mediastinal lymphadenopathy. Thoracic aorta is ectatic but not aneurysmally dilated. There is no pulmonary hypertension seen. There is no pericardial effusion or cardiomegaly. CORONARY ARTERY CALCIFICATION: None visualized on this study. PLEURA: There is no pleural effusion. No pleural mass or thickening. AXILLA: No lymphadenopathy. UPPER ABDOMEN: There is stable low-attenuation lesion most likely cyst in the left lobe of the liver, measured 0.9 cm. OSSEOUS STRUCTURES: Unremarkable. CT/CT chest wo IV con IMPRESSION: 1. Stable severe changes of emphysema with multiple bulla and blebs. Scarring in the left upper lobe adjacent to the largest bulla unchanged since previous examination. 2. Stable low-attenuation lesion in the left lobe of the liver most likely cyst. Fleischner guidelines were followed.
== END 2022-12-27 09:22 | disposition home or self-care (01) ==
LOC: HO.CT 09:21
PROVIDERS: PCP Internal Medicine; Visit Provider Surgery
DX: R91.1 Solitary pulmonary nodule (principal)
CPT/HCPCS: 71250

== ENCOUNTER 2023-01-03 10:17 | Outpatient (AMB) | payer MEDICARE, MEDICAID, SELFPAY ==
--- NOTE | 2023-01-03 10:17 | MHC.OFFVIS ---
Intake Vital Signs 01/03/23 10:22 Height 5 ft 10 in Weight 140 lb BMI 20.1 BP 172/97 H Blood Pressure Location Rt brachial Position Sitting Pulse 80 Intake Visit Reasons: nodule upper lobe left lung, CT results Intake Note: Patient here to discuss CT scan results for nodule on upper lobe lung. Ct scan performed on 12-27-22. Microwave Radio Technician Required: No Accompanied by: Self / Same As Patient Allergies No Known Allergies Allergy (Mild, Verified 01/03/23 10:23) NOT APPLICABLE Medication List - Last Reconciled 01/03/23 by Сергей Denton MD aspirin 81 mg PO DAILY atogepant (Qulipta) 60 mg PO DAILY ibuprofen 400 mg PO Q6H PRN loratadine (Allergy Relief (loratadine)) 10 mg PO DAILY metoprolol succinate ER 50 mg PO DAILY nicotine 1 patch transdermal DAILY omeprazole 20 mg PO DAILY HPI HPI Comments History of Present Illness Details Patient presents for follow-up status post surveillance of left lung nodule. He claims that he is trying to discontinue smoking although nonetheless continues to smoke. He has no new respiratory issues or complaints. [facility] Medical History Nicotine dependence, cigarettes, uncomplicated Tubular adenoma of colon (~2001) Chronic headaches Neurofibromatosis GERD (gastroesophageal reflux disease) HTN (hypertension) Surgical History History of inguinal hernia repair History of excision of lesion History of colonoscopy History of esophagogastroduodenoscopy (EGD) History of mandibular surgery Family History Mother Lung cancer Skin cancer Sister Breast cancer Social History Alcohol intake: never Patient Tobacco Use Status: Current everyday Tobacco user Tobacco use type: Cigarette Cigarettes Per Day: 5 Years Smoked: (onset 13yo, 1/2-1ppd x 48yrs, 30+PYH) Physical Exam Vital Signs: Last Vital Signs Pulse 80 01/03/23 10:22 BP 172/97 H 01/03/23 10:22 BMI result Body Mass Index 20.1 Neck Other: No cervical periclavicular or axillary adenopathy bilaterally. Chest Other: Chest breath sounds bilaterally, consistent with COPD. Assessment & Plan Assessment & Plan (1) Nodule of upper lobe of left lung: Comment: (1.3x1.0x0.9cm spiculated nodule TAMIKA - SUV max 1.0 on PET 08/18/21) Code(s): R91.1 - Solitary pulmonary nodule Plan: Current plan is to repeat surveillance CT scan in 6 months time. Patient strongly encouraged to discontinue smoking. He is discussing this with his medical doctor. He will otherwise follow-up in 6 months time or p.r.n.. (2) Paraseptal emphysema: Comment: (paraseptal emphyema/bullous lesions noted on chest CTs dating back to 2001) Code(s): J43.8 - Other emphysema (3) Nicotine dependence, cigarettes, uncomplicated: Comment: (current smoker onset 13yo, 1/2-1ppd x 48yrs, 30+PYH, +fam hx lung ca) Code(s): F17.210 - Nicotine dependence, cigarettes, uncomplicated Orders: Orders CT chest wo/w IV con 6 Months F17.210 - Nicotine dependence, cigarettes, uncomplicated, J43.8 - Other emphysema, R91.1 - Solitary pulmonary nodule Coding Level of Care Code Est Pt Level 4 (50098) Diagnoses Nodule of upper lobe of left lung R91.1 Paraseptal emphysema J43.8 Nicotine dependence, cigarettes, uncomplicated F17.210
[2023-01-03 10:22] VITALS: BP 172/97; PULSE 80; BMI 20.1
== END 2023-01-03 10:35 | disposition home or self-care (01) ==
PROVIDERS: PCP Internal Medicine; Visit Provider Surgery
DX: R91.1 Solitary pulmonary nodule (principal); J43.8 Other emphysema; F17.210 Nicotine dependence, cigarettes, uncomplicated
CPT/HCPCS: 99214

== ENCOUNTER → 2023-01-03 10:17 | Outpatient (BNVA) | payer MEDICARE, MEDICAID, SELFPAY | PROVIDERS: PCP Internal Medicine; Visit Provider Surgery | DX: J43.8 Other emphysema (principal); R91.1 Solitary pulmonary nodule; F17.210 Nicotine dependence, cigarettes, uncomplicated | CPT/HCPCS: 99212 ==

== ENCOUNTER 2023-05-17 15:07 | Outpatient (AMB) | payer MEDICARE, MEDICAID, SELFPAY ==
--- NOTE | 2023-05-17 15:14 | MHC.OFFVIS ---
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 Pt had arterial US at home through insurance and had very low JANA's. PT states he gets cramps, after walking 2 miles. 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 Entire workup began as a insurance health screening. At that time he had a home single spot volume plethysmography. He was quite concerned about this. He was then scheduled by his primary care for urgent evaluation upon discussion with him he is able to ambulate distances. He reports he can even go up to 2 miles. He is able to climb a flight of stairs. Reports pain begins more so left than right. Smokes about a half a pack per day and is a nondiabetic. Of note he does have a history of neurofibromatosis which he did have a jaw resection at a very young age. Also of note he is being maintained on aspirin PFSH Medical History Nicotine dependence, cigarettes, uncomplicated Tubular adenoma of colon (~2001) Chronic headaches Neurofibromatosis GERD (gastroesophageal reflux disease) HTN (hypertension) Surgical History Nicotine dependence, cigarettes, uncomplicated History of inguinal hernia repair History of excision of lesion History of colonoscopy History of esophagogastroduodenoscopy (EGD) History of mandibular surgery Family History Mother Lung cancer Skin cancer Sister Breast cancer Social History Alcohol intake: never Patient Tobacco Use Status: Current everyday Tobacco user Tobacco use type: Cigarette Cigarettes Per Day: 5 Years Smoked: (onset 13yo, 1/2-1ppd x 48yrs, 30+PYH) Review of Systems Const All systems reviewed & are unremarkable except as noted in HPI and below Reports no additional complaints ENT Reports Normal hearing present Card Denies chest pain, Denies chest pain at rest, Denies chest pain with activity and Denies pedal edema Resp Denies cough GI Denies abdominal pain Musc Denies abnormal gait, Denies muscle cramps and Denies radiating pain into limb Skin/Breast Denies skin ulcer and Denies wounds Neuro Reports Normal hearing present and Denies abnormal gait Psych Reports no additional complaints Physical Exam Vital Signs: BMI result Body Mass Index 20.1 Const General: cooperative, healthy appearing and comfortable Orientation/consciousness: oriented to person, oriented to place and oriented to time HEENT Head: Yes normal to inspection Neck Neck: Yes normal visual inspection Carotids: no bruits Chest Chest palpation & inspection: normal inspection of the chest Resp Effort & Inspection: normal respiratory effort and able to speak in complete sentences Auscultation: clear to auscultation bilaterally, no crackles, no rales, no rhonchi and no wheezes Cardio Other: Bilateral DP signals Rate: regular rate Rhythm: regular rhythm Heart sounds: S1 normal heart sound present and S2 normal heart sound present Bruits: no carotid bruits Peripheral pulses: Peripheral pulses 2+ throughout GI Inspection: Yes normal to inspection Skin Wounds: no wounds Hair: normal Neuro General: oriented to person, oriented to place and oriented to time Cranial nerves: Yes CN's II-XII intact bilaterally and Yes Normal hearing present Cognition (Neuro): normal cognition Motor exam (neuro): 5/5 motor strength present throughout Extrem Other: venous exam: No significant superficial varicosities or spider telangiectasias, minimal edema General: No clubbing, No cyanosis and No edema Psych Appearance: grossly normal Mental Status: mental status grossly normal Speech and movement: Normal speech and movement present Assessment & Plan Assessment & Plan (1) PAD (peripheral artery disease): Code(s): I73.9 - Peripheral vascular disease, unspecified Plan: In short patient has evidence of peripheral vascular disease. I would like to get a better formal arterial ultrasound with JANA. We did discuss routine risk factor modification including smoking cessation. He may benefit from the addition of a statin to his medication regimen. Will follow up with us after testing. Thank you for allowing us to assist in his care. If there are any questions or concerns please do not hesitate to contact us. Orders: Orders US arterial duplex LE BI 1 Week I73.9 - Peripheral vascular disease, unspecified Coding Level of Care Code New Pt Level 4 (91270) Diagnoses PAD (peripheral artery disease) I73.9
[2023-05-17 15:15] VITALS: BMI 20.1
== END 2023-05-18 08:11 | disposition home or self-care (01) ==
PROVIDERS: PCP Internal Medicine; Visit Provider Surgery Vascular Surgery
DX: I73.9 Peripheral vascular disease, unspecified (principal)
CPT/HCPCS: 99203

== ENCOUNTER → 2023-05-17 15:07 | Outpatient (BNVA) | payer MEDICARE, MEDICAID, SELFPAY | PROVIDERS: PCP Internal Medicine; Visit Provider Surgery Vascular Surgery | DX: I73.9 Peripheral vascular disease, unspecified (principal) | CPT/HCPCS: 99202 ==

== ENCOUNTER 2023-06-08 09:38 | Outpatient (REF) | payer MEDICARE, SELFPAY ==
--- NOTE | ~2023-06-08 | US_ITS ---
EXAMINATION: NONINVASIVE ASSESSMENT OF THE BILATERAL LOWER EXTREMITIES WITH ARTERIAL DUPLEX AND ANKLE BRACHIAL INDICES (ABIS) ULTRASOUND AORTA CLINICAL INFORMATION: Peripheral vascular disease. TECHNIQUE: Duplex Doppler techniques with waveform analysis and measurement of velocities in the bilateral common femoral, profunda femoris, superficial femoral, popliteal and tibial arteries were performed. Additionally, ankle pulse volume recordings, ankle pressure measurements and ankle brachial indices were obtained of the lower extremity arterial system bilaterally. The study was performed only at rest. Multiple delong-scale and color Doppler images of the abdominal aorta and bilateral iliac arteries obtained. COMPARISON: None. FINDINGS: DIRECT DUPLEX DOPPLER FINDINGS: RIGHT LEG: Common femoral artery: 12.2 cm/s, phasicity: Monophasic Profunda femoris artery: 26.2 cm/s, phasicity: Monophasic Superficial femoral artery (proximal): 35.8 cm/s, phasicity: Monophasic Superficial femoral artery (mid): 26.8 cm/s, phasicity: Monophasic Superficial femoral artery (distal): 39.2 cm/s, phasicity: Monophasic Popliteal artery: 16.9 cm/s, phasicity: Monophasic Posterior tibial artery: 14.9 cm/s, phasicity: Monophasic Peroneal artery: Not visualized Anterior tibial artery: 8.2 cm/s, phasicity: Monophasic Dorsalis pedis artery: 4.6 cm/s, phasicity:Monophasic LEFT LEG: Common femoral artery: 28.3 cm/s, phasicity: Biphasic Profunda femoris artery: 48.7 cm/s, phasicity: Monophasic Superficial femoral artery (proximal): 50.8 cm/s, phasicity: Biphasic Superficial femoral artery (mid): 51.7 cm/s, phasicity: Biphasic Superficial femoral artery (distal): 36.8 cm/s, phasicity: Biphasic Popliteal artery: 28.7 cm/s, phasicity: Biphasic Posterior tibial artery: 15.5 cm/s, phasicity: Monophasic Peroneal artery: Not visualized Anterior tibial artery: 21.9 cm/s, phasicity: Biphasic Dorsalis pedis artery: 6.1 cm/s, phasicity: Monophasic ANKLE-BRACHIAL INDEX: Right: 0.64? Left: 0.68 ANKLE PRESSURES: Right: PT 89, DP 77 Left: PT?78, DP?94 ANKLE PVR WAVEFORMS: Right: Markedly dampened Left: Markedly dampened AORTA: Proximal: 2.7 cm, 54.3 cm/s. Atherosclerotic wall calcifications Mid: 2.1 cm, 35.0 cm/s. Atherosclerotic wall calcifications Distal: 1.2 cm, 41.7 cm/s. Atherosclerotic wall calcifications ILIAC ARTERIES: Right common iliac artery: 52.2 cm/s, monophasic Right external iliac artery: 411 cm/s, monophasic with calcified and noncalcified plaque Left common iliac artery: 65.2 cm/s, monophasic Left external iliac artery: 533 cm/s, monophasic with calcified and noncalcified plaque US/US arterial duplex BI w/ JANA IMPRESSION: RIGHT LEG: Moderately decreased ankle brachial index with markedly dampened PVR waveforms. Duplex ultrasound demonstrates a severe stenosis in the right external iliac artery with diffusely dampened arterial waveforms throughout the right lower extremity as described above LEFT LEG: Moderately decreased ankle brachial index with markedly dampened PVR waveforms. Duplex ultrasound demonstrates a severe stenosis in the left external iliac artery with diffusely dampened arterial waveforms throughout the right lower extremity as described above JANA Reference: - >1.4 = calcified vessels - 0.9 - 1.4 = normal - no significant arterial disease - 0.7 - 0.89 = mild peripheral arterial disease - 0.51 - 0.69 = moderate peripheral arterial disease - ? 0.50 = severe peripheral arterial disease - < .30 = critical arterial disease
== END 2023-06-08 09:39 | disposition home or self-care (01) ==
LOC: HO.US 09:38
PROVIDERS: PCP Internal Medicine; Visit Provider Surgery Vascular Surgery
DX: I73.9 Peripheral vascular disease, unspecified (principal)
CPT/HCPCS: 76706; 93922; 93925

== ENCOUNTER 2023-06-21 08:45 | Outpatient (AMB) | payer MEDICARE, SELFPAY ==
[2023-06-21 08:55] VITALS: BMI 20.1
--- NOTE | 2023-06-21 08:55 | MHC.OFFVIS ---
Vital Signs 06/21/23 08:55 Height 5 ft 10 in Weight 140 lb BMI 20.1 Intake Visit Reasons: follow up Arterial US 06/08/2023 Intake Note: follow up bilateral LE arterial US 06/08/23, pt states that since last visit he has notice calf cramping when in the seated position. Also states he still walks 2 miles before cramping. Pt states Right LE is worse than Left LE.. Pt is able to climb stairs without cramping. Pt states he was started on a statin but unsure which one. Accompanied by: Self / Same As Patient Allergies No Known Allergies Allergy (Mild, Verified 06/21/23 09:03) NOT APPLICABLE HPI HPI follow up Arterial US 06/08/2023: Details: Very pleasant 63-year-old gentleman presents for routine arterial surveillance follow-up. Entire workup for peripheral vascular disease began as an insurance workup. Reports that he smokes about half pack per day and is a nondiabetic. He is being maintained on an aspirin and statin. He can walk a mi with no difficulty. Now presents for routine arterial surveillance. [facility] Medical History Tubular adenoma of colon (~2001) Chronic headaches Neurofibromatosis GERD (gastroesophageal reflux disease) HTN (hypertension) Surgical History Nicotine dependence, cigarettes, uncomplicated History of inguinal hernia repair History of excision of lesion History of colonoscopy History of esophagogastroduodenoscopy (EGD) History of mandibular surgery Family History Mother Lung cancer Skin cancer Sister Breast cancer Social History Alcohol intake: never Patient Tobacco Use Status: Current everyday Tobacco user Tobacco use type: Cigarette Cigarettes Per Day: 5 Years Smoked: (onset 13yo, 1/2-1ppd x 48yrs, 30+PYH) Review of Systems Const All systems reviewed & are unremarkable except as noted in HPI and below Reports no additional complaints ENT Reports Normal hearing present Card Denies chest pain, Denies chest pain at rest, Denies chest pain with activity and Denies pedal edema Resp Denies cough GI Denies abdominal pain Musc Denies abnormal gait, Denies muscle cramps and Denies radiating pain into limb Skin/Breast Denies skin ulcer and Denies wounds Neuro Reports Normal hearing present and Denies abnormal gait Psych Reports no additional complaints Physical Exam Vital Signs: BMI result Body Mass Index 20.1 Const General: cooperative, healthy appearing and comfortable Orientation/consciousness: oriented to person, oriented to place and oriented to time HEENT Head: Yes normal to inspection Neck Neck: Yes normal visual inspection Carotids: no bruits Chest Chest palpation & inspection: normal inspection of the chest Resp Effort & Inspection: normal respiratory effort and able to speak in complete sentences Auscultation: clear to auscultation bilaterally, no crackles, no rales, no rhonchi and no wheezes Cardio Other: Bilateral DP signals Rate: regular rate Rhythm: regular rhythm Heart sounds: S1 normal heart sound present and S2 normal heart sound present Bruits: no carotid bruits Peripheral pulses: Peripheral pulses 2+ throughout GI Inspection: Yes normal to inspection Skin Wounds: no wounds Hair: normal Neuro General: oriented to person, oriented to place and oriented to time Cranial nerves: Yes CN's II-XII intact bilaterally and Yes Normal hearing present Cognition (Neuro): normal cognition Motor exam (neuro): 5/5 motor strength present throughout Extrem Other: venous exam: No significant superficial varicosities or spider telangiectasias, minimal edema General: No clubbing, No cyanosis and No edema Psych Appearance: grossly normal Mental Status: mental status grossly normal Speech and movement: Normal speech and movement present Results Reviewed Results Reviewed: Noninvasive arterial testing dated 06/08/2023 demonstrates JANA on the right of 0.64 and on the left of 0.68 with monophasic waveforms. Assessment & Plan Assessment & Plan (1) PAD (peripheral artery disease): Code(s): I73.9 - Peripheral vascular disease, unspecified Category: Medical Plan: In short patient has stable claudication. I did review the pathophysiology of peripheral vascular disease with the patient. In addition we did discuss routine conservative measures including a healthy diet and the importance of exercise and ambulation. We did discuss risk factor modification. The patient will continue to to follow-up with surveillance follow-up in approximately 6 months. Thank you for allowing us to participate in this patient's care. If there are any questions or concerns please do not hesitate to contact us. Orders: Orders US arterial duplex LE BI 6 Months I73.9 - Peripheral vascular disease, unspecified Coding Level of Care Code Est Pt Level 4 (27966) Diagnoses PAD (peripheral artery disease) I73.9
== END 2023-06-21 09:48 | disposition home or self-care (01) ==
PROVIDERS: PCP Internal Medicine; Visit Provider Surgery Vascular Surgery
DX: I73.9 Peripheral vascular disease, unspecified (principal)
CPT/HCPCS: 99213

== ENCOUNTER → 2023-06-21 08:45 | Outpatient (BNVA) | payer MEDICARE, SELFPAY | PROVIDERS: PCP Internal Medicine; Visit Provider Surgery Vascular Surgery | DX: I73.9 Peripheral vascular disease, unspecified (principal) | CPT/HCPCS: 99212 ==

== ENCOUNTER 2023-06-27 08:19 | Outpatient (REF) | payer MEDICARE, SELFPAY ==
--- NOTE | ~2023-06-27 | CT_ITS ---
EXAMINATION: CT CHEST WITHOUT CONTRAST CLINICAL INFORMATION: Solitary pulmonary nodule COMPARISON: CT chest from 12/27/2022 TECHNIQUE: Multidetector volumetric CT imaging of the chest was done. Axial MIP volume rendering provided. Sagittal and coronal reformatted images were obtained. This CT examination was performed using dose optimization techniques as appropriate, variously including the following: *Automated exposure control *Adjustment of mA and/or kV according to patient size (this includes techniques or standardized protocols for targeted exams where dose is matched to indication/reason for exam; i.e. extremities or head) *Use of iterative reconstruction technique DLP: 93 mGy-cm FINDINGS: LUNGS/PLEURA: Severe emphysematous changes throughout the bilateral lung keys with bilateral bulla and blebs. Stable nodular scarring in the left lung apex (series 5, image 104 measuring up to 1.1 cm, stable. Evaluation for nodules is limited secondary to pleural-parenchymal changes. Central airways are patent. No pneumothorax. No large pleural effusion. MEDIASTINUM: Heart is not enlarged. No pericardial effusion. No coronary artery calcifications. Aorta is nonaneurysmal and demonstrates atherosclerotic calcifications. Main pulmonary artery is not enlarged. A few mildly prominent though nonenlarged mediastinal lymph nodes are noted. Visualized portions of the thyroid AXILLA: No lymphadenopathy. UPPER ABDOMEN: Redemonstrated hypodense focus in the left hepatic lobe demonstrating fluid attenuation statistically representing a cyst. Small hiatal hernia. OSSEOUS STRUCTURES/SOFT TISSUES: Redemonstration of numerous soft tissue nodules. Multilevel degenerative changes of the thoracolumbar spine CT/CT chest wo IV con IMPRESSION: 1. Severe emphysematous changes throughout the bilateral lung keys with bilateral bulla and blebs. 2. Stable nodular scarring in the left lung apex measuring up to 1.1 cm, stable. 3. Redemonstrated hypodense focus in the left hepatic lobe demonstrating fluid attenuation statistically representing a cyst. 4. Small hiatal hernia. 5. Redemonstration of numerous soft tissue nodules.
== END 2023-06-27 08:20 | disposition home or self-care (01) ==
LOC: HO.CT 08:19
PROVIDERS: PCP Internal Medicine; Visit Provider Surgery
DX: R91.1 Solitary pulmonary nodule (principal)
CPT/HCPCS: 71250

== ENCOUNTER 2023-07-04 08:15 | Outpatient (AMB) | payer MEDICARE, MEDICAID, SELFPAY ==
--- NOTE | 2023-07-04 08:32 | A.OFFVIS_ITS ---
Vital Signs 07/04/23 08:37 Height 5 ft 10 in Weight 146 lb BMI 20.9 BP 163/93 H Blood Pressure Location Rt brachial Position Sitting Pulse 94 Pulse Oximetry (%) 97 Oxygen Delivery Method Room Air Intake Visit Reasons: follow up visit for CT results Intake Note: Patient here for 6m f/u Lt lung nodule. Discuss recent Chest CT on 06-27-23. Patient c/o: no concerns. Clerical Support Specialist Required: No Accompanied by: Self / Same As Patient Allergies No Known Allergies Allergy (Mild, Verified 07/04/23 08:33) NOT APPLICABLE HPI Comments Details: Patient presents for follow-up for lung cancer screening surveillance. He had a CT scan a few days ago which unfortunately has not been read by radiology yet. In the meantime, patient is down to 3 cigarettes a day. He denies any respiratory symptoms of hemoptysis, new cough, chest pain, wheezing. His weight , energy and appetite are stable. [facility] Medical History Tubular adenoma of colon (~2001) Chronic headaches Neurofibromatosis GERD (gastroesophageal reflux disease) HTN (hypertension) Surgical History Nicotine dependence, cigarettes, uncomplicated History of inguinal hernia repair History of excision of lesion History of colonoscopy History of esophagogastroduodenoscopy (EGD) History of mandibular surgery Family History Mother Lung cancer Skin cancer Sister Breast cancer Social History Alcohol intake: never Patient Tobacco Use Status: Current everyday Tobacco user Tobacco use type: Cigarette Cigarettes Per Day: 5 Years Smoked: (onset 13yo, 1/2-1ppd x 48yrs, 30+PYH) Physical Exam Vital Signs: Last Vital Signs Pulse 94 07/04/23 08:37 BP 163/93 H 07/04/23 08:37 Pulse Ox 97 07/04/23 08:37 Oxygen Delivery Method Room Air 07/04/23 08:37 BMI result Body Mass Index 20.9 Const Other: Thin male with history of neurofibromatosis with lesions throughout his body. Chest Other: Chest breath sounds bilaterally consistent with COPD. No periclavicular cervical axillary or groin adenopathy appreciated. GI Other: Abdomen is soft. Benign. Multiple neurofibromas Assessment & Plan Assessment & Plan (1) Nodule of upper lobe of left lung: Comment: (1.3x1.0x0.9cm spiculated nodule TAMIKA - SUV max 1.0 on PET 08/18/21) Code(s): R91.1 - Solitary pulmonary nodule Category: Surgical Plan Current plan is to await the final radiologic reading of the CT scan and direct further therapy based on these results ranging from continue surveillance every 6 months or possibly a year or maybe intervention again based on radiologic interpretation. Coding Level of Care Code Est Pt Level 4 (03511) Diagnoses Nodule of upper lobe of left lung R91.1
[2023-07-04 08:37] VITALS: BP 163/93; PULSE 94; O2SAT 97; BMI 20.9
== END 2023-07-04 08:49 | disposition home or self-care (01) ==
PROVIDERS: PCP Internal Medicine; Visit Provider Surgery
DX: R91.1 Solitary pulmonary nodule (principal)
CPT/HCPCS: 99214

== ENCOUNTER → 2023-07-04 08:15 | Outpatient (BNVA) | payer MEDICARE, SELFPAY | PROVIDERS: PCP Internal Medicine; Visit Provider Surgery | DX: R91.1 Solitary pulmonary nodule (principal); Q85.00 Neurofibromatosis, unspecified; F17.210 Nicotine dependence, cigarettes, uncomplicated | CPT/HCPCS: 99212 ==

== ENCOUNTER 2023-12-29 07:06 | Outpatient (REF) | payer MEDICARE, MEDICAID, SELFPAY ==
--- NOTE | ~2023-12-29 | US_ITS ---
EXAMINATION: Noninvasive assessment of the bilateral lower extremities with ARTERIAL DUPLEX and ANKLE BRACHIAL INDICES (ABIs). CLINICAL INFORMATION: Peripheral vascular disease TECHNIQUE: Duplex Doppler techniques with waveform analysis and measurement of velocities in the bilateral common femoral, profunda femoris, superficial femoral, popliteal and tibial arteries were performed. Additionally, ankle pulse volume recordings, ankle pressure measurements and ankle brachial indices were obtained of the lower extremity arterial system bilaterally. The study was performed only at rest. COMPARISON: 06/08/2023 FINDINGS: DIRECT DUPLEX DOPPLER FINDINGS: RIGHT LEG: Common femoral artery: 18 cm/s, phasicity: Monophasic Profunda femoris artery: 22 cm/s, phasicity: Monophasic Superficial femoral artery (proximal): 59 cm/s, phasicity: Monophasic Superficial femoral artery (mid): 78 cm/s, phasicity: Monophasic Superficial femoral artery (distal): 21 cm/s, phasicity: Monophasic Popliteal artery: 30 cm/s, phasicity: Monophasic Posterior tibial artery: 41 cm/s, phasicity: Monophasic Peroneal artery: 31 cm/s, phasicity: Monophasic Anterior tibial artery: 46 cm/s, phasicity: Monophasic Dorsalis pedis artery: 16 cm/s, phasicity:Monophasic LEFT LEG: Common femoral artery: 72 cm/s, phasicity: Biphasic Profunda femoris artery: 45 cm/s, phasicity: Monophasic Superficial femoral artery (proximal): 64 cm/s, phasicity: Biphasic Superficial femoral artery (mid): 62 cm/s, phasicity: Biphasic Superficial femoral artery (distal): 50 cm/s, phasicity: Biphasic Popliteal artery: 46 cm/s, phasicity: Biphasic Posterior tibial artery: 29 cm/s, phasicity: Biphasic Peroneal artery: 29 cm/s, phasicity: Monophasic Anterior tibial artery: 49 cm/s, phasicity: Biphasic Dorsalis pedis artery: 44 cm/s, phasicity: Biphasic ANKLE-BRACHIAL INDEX: Right: 0.71, previously 0.64 Left: 0.77, previously 0.68 ANKLE PRESSURES: Right: PT 110, DP 102 Left: PT 132, DP 120 ANKLE PVR WAVEFORMS: Right: Abnormal Left: Abnormal US/US arterial duplex BI w/ JANA IMPRESSION: RIGHT LEG: Diffuse atherosclerotic disease with monophasic waveforms throughout the right lower extremity consistent with more proximal iliac artery stenosis/occlusion. No focal stenosis or occlusion in the femoral, popliteal and below-knee runoff vessels. Ankle brachial index is 0.71 consistent with mild peripheral arterial disease. Stable examination LEFT LEG: Diffuse atherosclerotic disease with biphasic waveforms. No focal stenosis or occlusion. Ankle brachial index is 0.77 consistent with mild peripheral arterial disease. Stable examination Electronically signed by: Demarco Spencer MD 12/29/2023 11:50 AM [facility] [place]
--- NOTE | ~2023-12-29 | CT_ITS ---
EXAMINATION: CT CHEST WITHOUT CONTRAST CLINICAL INFORMATION: Solitary pulmonary nodule COMPARISON: CT chest 06/27/2023 TECHNIQUE: Multidetector volumetric CT imaging of the chest was done. Axial MIP volume rendering provided. Sagittal and coronal reformatted images were obtained. This CT examination was performed using dose optimization techniques as appropriate, variously including the following: *Automated exposure control *Adjustment of mA and/or kV according to patient size (this includes techniques or standardized protocols for targeted exams where dose is matched to indication/reason for exam; i.e. extremities or head) *Use of iterative reconstruction technique DLP: 126 mGy-cm FINDINGS: LEVEL VIAL SETTER: Numerous soft tissue nodules redemonstrated. LUNGS: Central airways are patent. Severe emphysema involving the bilateral lungs and predominantly the upper lobes with peripheral blebs and bulla, unchanged. Stable left apical 1.2 cm nodular scarring (series #5 axial image 118). There are a few stable micronodules scattered bilaterally measuring up to 0.2 cm. No new or suspicious pulmonary nodule. No focal consolidation or mass. No pleural effusion or pneumothorax. MEDIASTINUM: The mediastinum is normal. No mediastinal or hilar lymphadenopathy. Normal thyroid. CORONARY ARTERY CALCIFICATION: None visualized on this study. CHEST WALL/AXILLA: No lymphadenopathy. Mild pectus excavatum with Pablo index of 2.6, unchanged. UPPER ABDOMEN: Stable 1.2 cm left liver simple fluid attenuating cyst, unchanged since 2013. Left renal 4.8 cm simple fluid attenuating cyst partially visualized, no follow-up imaging recommended. OSSEOUS STRUCTURES: Unremarkable. CT/CT chest wo IV con IMPRESSION: 1. Stable left apical 1.2 cm nodular scarring. No new or suspicious pulmonary nodule. Per the 2017 revised Fleischner Society guidelines, no follow-up needed if patient is low-risk. Non-contrast chest CT can be considered in 12 months if patient is high-risk. 2. Severe emphysema, unchanged. Fleischner guidelines were followed. Electronically signed by: Leola Resendez DO 01/10/2024 10:00 AM [facility]
== END 2023-12-29 07:07 | disposition home or self-care (01) ==
LOC: HO.CT 07:06
PROVIDERS: PCP Internal Medicine; Visit Provider Surgery Vascular Surgery
DX: I73.9 Peripheral vascular disease, unspecified (principal); F17.210 Nicotine dependence, cigarettes, uncomplicated
CPT/HCPCS: 71250; 93922; 93925

== ENCOUNTER 2024-01-10 08:37 | Outpatient (AMB) | payer MEDICARE, MEDICAID, SELFPAY ==
--- NOTE | 2024-01-10 09:06 | MHC.OFFVIS ---
Vital Signs 01/10/24 09:15 Height 5 ft 10 in Weight 155 lb 10.342 oz BMI 22.3 BP 164/85 H Blood Pressure Location Rt brachial Position Sitting Pulse 91 Intake Visit Reasons: s/p CT Scan from 12/28/22 Intake Note: Patient here s/p CT scan from 12-28-2022. Hx of lt lung nodule. Patient c/o: report still pending. Spoke to Lisa at radiology. [employer]ler Required: No Accompanied by: Self / Same As Patient Allergies No Known Allergies Allergy (Mild, Verified 01/10/24 09:15) NOT APPLICABLE HPI Comments Details: Patient presents for annual screening lung cancer follow-up. He has no new issues or complaints. No respiratory problems. He is still having a few cigarettes per day. CT scan is still not read by Radiology but unofficially looks status quo but official reading still pending [facility], [facility] Medical History Tubular adenoma of colon (~2001) Chronic headaches Neurofibromatosis GERD (gastroesophageal reflux disease) HTN (hypertension) Surgical History Nicotine dependence, cigarettes, uncomplicated History of inguinal hernia repair History of excision of lesion History of colonoscopy History of esophagogastroduodenoscopy (EGD) History of mandibular surgery Family History Mother Lung cancer Skin cancer Sister Breast cancer Social History Alcohol intake: never Patient Tobacco Use Status: Current everyday Tobacco user Tobacco use type: Cigarette Cigarettes Per Day: 5 Years Smoked: (onset 13yo, 1/2-1ppd x 48yrs, 30+PYH) Physical Exam Vital Signs: Last Vital Signs Pulse 91 01/10/24 09:15 BP 164/85 H 01/10/24 09:15 BMI result Body Mass Index 22.3 Chest Other: Chest breath sounds bilaterally consistent with COPD. No cervical, periclavicular, or axillary adenopathy bilaterally. GI Other: Abdomen is soft, benign Assessment & Plan Assessment & Plan (1) Encounter for follow-up surveillance of lung cancer: Code(s): Z08 - Encounter for follow-up examination after completed treatment for malignant neoplasm; Z85.118 - Personal history of other malignant neoplasm of bronchus and lung Category: Surgical Plan As noted above, official reading still pending. Patient will be contacted should there be any issues. In the meantime, patient will see me in 1 year's time for follow-up screening lung cancer CT scan or p.r.n.. All questions answered. Coding Level of Care Code Est Pt Level 4 (93718) Complex EM visit Add On G2211 Diagnoses Encounter for follow-up surveillance of lung cancer Z08; Z85.118
[2024-01-10 09:15] VITALS: BP 164/85; PULSE 91; BMI 22.3
== END 2024-01-10 09:26 | disposition home or self-care (01) ==
PROVIDERS: PCP Internal Medicine; Visit Provider Surgery
DX: Z08 Encounter for follow-up examination after completed treatment for malignant neoplasm (principal); Z85.118 Personal history of other malignant neoplasm of bronchus and lung
CPT/HCPCS: 99214; G2211

== ENCOUNTER → 2024-01-10 08:37 | Outpatient (BNVA) | payer MEDICARE, MEDICAID, SELFPAY | PROVIDERS: PCP Internal Medicine; Visit Provider Surgery | DX: Z08 Encounter for follow-up examination after completed treatment for malignant neoplasm (principal); Z85.118 Personal history of other malignant neoplasm of bronchus and lung | CPT/HCPCS: 99212 ==

== ENCOUNTER 2024-01-12 13:21 | Outpatient (AMB) | payer MEDICARE, MEDICAID, SELFPAY ==
--- NOTE | 2024-01-12 13:36 | A.OFFVIS_ITS ---
Intake Visit Reasons: arterial follow-up Intake Note: Patient presents for follow up arterial US performed on 12/29/23. Patient states he is climbing stairs no problem. Walking about two miles daily. Accompanied by: Self / Same As Patient Allergies No Known Allergies Allergy (Mild, Verified 01/12/24 13:38) NOT APPLICABLE HPI Comments Details: Very pleasant 64-year-old gentleman presents for routine annual arterial surveillance follow-up. He reports that he has had no interval issues. He continues to smoke about half a pack per day actually showed up to the office visit with pack of New[place] in his pocket. Does report that he can walk 2 miles with no difficulty and easily climbs his flight of stairs which has 14 stairs with no challenges. He now presents for routine follow-up with noninvasive testing. Of note he does have a history of neurofibromatosis. [facility] Medical History Tubular adenoma of colon (~2001) Chronic headaches Neurofibromatosis GERD (gastroesophageal reflux disease) HTN (hypertension) Surgical History Nicotine dependence, cigarettes, uncomplicated History of inguinal hernia repair History of excision of lesion History of colonoscopy History of esophagogastroduodenoscopy (EGD) History of mandibular surgery Family History Mother Lung cancer Skin cancer Sister Breast cancer Social History Alcohol intake: never Patient Tobacco Use Status: Current everyday Tobacco user Tobacco use type: Cigarette Cigarettes Per Day: 5 Years Smoked: (onset 13yo, 1/2-1ppd x 48yrs, 30+PYH) Review of Systems Const All systems reviewed & are unremarkable except as noted in HPI and below Reports no additional complaints ENT Reports Normal hearing present Card Denies chest pain, Denies chest pain at rest, Denies chest pain with activity and Denies pedal edema Resp Denies cough GI Denies abdominal pain Musc Denies abnormal gait, Denies muscle cramps and Denies radiating pain into limb Skin/Breast Denies skin ulcer and Denies wounds Neuro Reports Normal hearing present and Denies abnormal gait Psych Reports no additional complaints Physical Exam Const General: cooperative, healthy appearing and comfortable Orientation/consciousness: oriented to person, oriented to place and oriented to time HEENT Head: Yes normal to inspection Neck Neck: Yes normal visual inspection Carotids: no bruits Chest Chest palpation & inspection: normal inspection of the chest Resp Effort & Inspection: normal respiratory effort and able to speak in complete sentences Auscultation: clear to auscultation bilaterally, no crackles, no rales, no rhon chi and no wheezes Cardio Other: Bilateral DP signals Rate: regular rate Rhythm: regular rhythm Heart sounds: S1 normal heart sound present and S2 normal heart sound present Bruits: no carotid bruits Peripheral pulses: Peripheral pulses 2+ throughout GI Inspection: Yes normal to inspection Skin Wounds: no wounds Hair: normal Neuro General: oriented to person, oriented to place and oriented to time Cranial nerves: Yes CN's II-XII intact bilaterally and Yes Normal hearing present Cognition (Neuro): normal cognition Motor exam (neuro): 5/5 motor strength present throughout Extrem Other: venous exam: No significant superficial varicosities or spider telangiectasias, minimal edema General: No clubbing, No cyanosis and No edema Psych Appearance: grossly normal Mental Status: mental status grossly normal Speech and movement: Normal speech and movement present Results Reviewed Results Reviewed: noninvasive arterial testing dated 12/29/2023 demonstrates JANA on the right of 0.71 and on the left of 0.77. Monophasic flow which is concerning for inflow on the right leg.Written report and images were reviewed. Assessment & Plan Assessment & Plan (1) PAD (peripheral artery disease): Code(s): I73.9 - Peripheral vascular disease, unspecified Category: Medical Plan: In short patient has stable claudication. I did review the pathophysiology of peripheral vascular disease with the patient. In addition we did discuss routine conservative measures including a healthy diet and the importance of exercise and ambulation. We did discuss risk factor modification. The patient will continue to to follow-up with surveillance follow-up in approximately One year. Thank you for allowing us to participate in this patient's care. If there are any questions or concerns please do not hesitate to contact us. Please note a longitudinal relationship has been created with the patient and we have been following and surveillance this chronic condition. Orders: Orders US arterial duplex LE BI 1 Year I73.9 - Peripheral vascular disease, unspecified Coding Level of Care Code Est Pt Level 4 (59128) Complex EM visit Add On G2211 Diagnoses PAD (peripheral artery disease) I73.9
== END 2024-01-12 14:36 | disposition home or self-care (01) ==
PROVIDERS: PCP Internal Medicine; Visit Provider Surgery Vascular Surgery
DX: I73.9 Peripheral vascular disease, unspecified (principal)
CPT/HCPCS: 99214; G2211

== ENCOUNTER → 2024-01-12 13:21 | Outpatient (BNVA) | payer MEDICARE, MEDICAID, SELFPAY | PROVIDERS: PCP Internal Medicine; Visit Provider Surgery Vascular Surgery | DX: I73.9 Peripheral vascular disease, unspecified (principal) | CPT/HCPCS: 99212 ==

== ENCOUNTER 2024-07-27 09:08 | Outpatient (AMB) | payer MEDICARE, MEDICAID, SELFPAY ==
--- OUTSIDE RECORDS SUMMARY | 2024-07-27 09:35 | XMS_ITS | Patient Health Record ---
Author Organization Leonidas Azul III, MD Address [address] [place] [address] Care Team Providers Care Diamond Powder Technician Name Role Phone Luis Carlos Chambers MD Primary Care Provider Leonidas Clark Unavailable [phone] Allergies No Known Allergies Reason For Referral No Information Medications Medication SIG (Take, Route, Frequency, Duration) Notes Start Date End Date Status Omeprazole 20 MG Oral Act cricket Metoprolol Succinate ER 50 MG Oral Active Ibuprofen 800 MG Oral Act cricket SUMAtriptan Succinate 100 MG Oral Active Aspirin 81 MG 1 tablet Orally Once a day Active Loratadine 10 MG 1 tablet Orally Once a day Active Social History Tobacco Use: Social History Observation Description Date Details (start date - stop date) Current Smoker NA - NA Tobacco Use/Smoking Question Answer Notes Patient is a current smoker How often do you smoke cigarettes? every day How many cigarettes a day do you smoke? 6-10 How soon after you wake up d o you smoke your first cigarette? after 60 minutes Are you interested in quitting? Thinking about q uitting Additional Findings: Tobacco User Light cigarett e smoker ((1-9 cigs/day) Alcohol Screen Question Answer Notes Did you have a drink containing alcohol in the p ast year? No Points 0 Interpretation Negative Problems Problem Type SNOMED Code ICD Code Onset Dates Problem Status W/U Status Risk Notes Problem 08234676 Weight loss (R63.4) Active confirmed Weight loss is ominous for such a small pulmonary mass. We discussed diet and nutrition today. He may be a candidate for dry and abdomen all or Megace. A PET CT scan is pending to stage the tumor. Problem Hypertension (93576485) Hypertension (I10) Active confirmed His blood pressure is stable at this time and no change in his regimen as needed. Problem Neurofibromatosis (11209113) Neurofibromat osis, unspecified (Q85.00) Active confirmed He has a true genetic disease of neurofibromatos is. Problem 10483205 Tobacco dependence (F17.200) Active confirmed He was counseled to reduced her cigarette usage his most is possible case he needs pulmonary surgery. Problem Migraine (63260598) Migraine (G43.909) Active confirmed He will continue on the sumatriptan. He has had no migraines since his last visit. Problem 90515017 Non-recurrent bilateral inguinal hernia without obstruction or gangrene (K40.20) Active confirmed The hernias have not recurred and the scars are well-healed. They are asymptomatic. 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 We will now see if he is operable. Pulmonary function test are pending. He will likely need to see cardiology and pulmonary. In addition to thoracic surgery. We do not have a tissue diagnosis at this point. I will speak to interventional radiology. Plan Of Treatment No Information Insurance Providers Payer Name Payer Address Payer Phone Subscriber Number Group Number Insured Name Patient Relationship to Insured Coverage Start Date Coverage End Date [facility] Health Plan [address] [address] [place] [address] [phone] [id number] JES MACK Self - patient is the insured 2 [place] [address] [place], [place] [id number] JES MACK Self - patient is the insured MEDICARE NGS [address] [place] [address] [phone] [id number] JES MACK Self - patient is the insured Medical (General) History Medical History History ICD Code Left upper lobe pulmonary mass Migraine G43.909 Hypertension I10 Neurofibromatosis Tobacco dependence Excised neurofibroma of the jaw Repaired bilateral inguinal hernias Pectus excavatum Weight loss Surgical History Surgery Date(Month/Year) hernia surgery [address] Leonidas fung [facility] 2016 Resection of neurofibroma from mandible in childhood Bilateral inguinal herniorrhaphies, Dr. Ortiz
--- NOTE | 2024-07-27 09:57 | A.OFFPC_ITS ---
Vital Signs 07/27/24 10:03 07/27/24 10:21 Height 5 ft 10 in Weight 66.678 kg BMI 21.1 BP 158/90 H 136/80 Respiration 16 Pulse 71 Pulse Source Pulse Oximeter Temp 97.7 F Temp Source Temporal Artery Scan Pulse Oximetry (%) 99 Oxygen Delivery Method Room Air Intake Visit Reasons: prescription Automation Tester Required: No Accompanied by: Self / Same As Patient Allergies No Known Allergies Allergy (Mild, Verified 07/27/24 10:01) NOT APPLICABLE Medication List - Last Reconciled 07/27/24 by SUZANNA Orosco aspirin 81 mg PO DAILY atorvastatin 10 mg PO DAILY fluticasone furoate-vilanterol 100-25 mcg/dose (Breo Ellipta) 1 inh inhalation Q24H fluticasone propionate 50 mcg/actuation 2 sprays intranasal DAILY loratadine (Allergy Relief (loratadine)) 10 mg PO DAILY metoprolol succinate ER 50 mg PO DAILY omeprazole 20 mg PO DAILY HPI HPI Comments History of Present Illness Details 64-year-old male with history of periphe ral artery disease, pulmonary nodules, COPD, GERD, hypertension, neurofibromatosis who is a current cigarette smoker presents to the office today for management of chronic conditions and to establish care. Hypertension-blood pressure on recheck 136/80. Compliant with metoprolol 50 mg ER Hyperlipidemia-overdue for labs. On atorvastatin 10 mg daily COPD-not on any maintenance medications. Does continue smoking 1/2 pack of cigarettes per day but is working on cutting back. No recent exacerbations. Denies shortness of breath, wheezing Pulmonary nodules-following for lung cancer screenings. Last CT 12/2023 showing stable 1.2 cm left apical nodule. No new or suspicious lesions. Annual follow- up is recommended Peripheral artery disease-following with vascular surgery. No claudication. On baby aspirin Neurofibromatosis-stable, not bothersome Concerns: None Health maintenance: Lung cancer screening-due 12/2024, needs new referral Last colonoscopy-12/2019 with tubular adenoma ROS: General: No fevers, malaise, unintentional weight loss HEENT: No blurred vision, diplopia. No sore throat, nasal congestion, rhinorrhea, sinus pain, ear pain Cardiovascular: No chest pain, palpitations, or leg edema Respiratory: No shortness of breath, wheezing, cough GI: No abdominal pain, nausea, vomiting, diarrhea, constipation, melena, hematochezia : No dysuria, hematuria, increased urinary frequency, decreased urinary output MSK: No myalgia, back pain Neuro: No headaches, weakness, paresthesias Skin: No rashes or lesions EXAM: Constitutional - Awake and Alert, No apparent distress Eyes - PERRLA, EOMI Cardiovascular - S1S2, RRR, No edema Respiratory - Normal lung expansion, Normal respiratory effort, No respiratory distress, CTA bilaterally Extremities - no calf tenderness bilaterally, no swelling Skin - Warm/Dry Neurological - Alert & oriented Psychological - Appropriate affect [facility] Medical History (Updated 07/27/24 @ 10:30 by SUZANNA Orosco) Hyperlipemia Nicotine dependence, cigarettes, uncomplicated Tubular adenoma of colon (~2001) Chronic headaches Neurofibromatosis GERD (gastroesophageal reflux disease) HTN (hypertension) Surgical History (Updated 07/25/24 @ 17:18 by Yasmine Elder) History of inguinal hernia repair History of excision of lesion History of colonoscopy (~01/09/20) History of esophagogastroduodenoscopy (EGD) History of mandibular surgery Family History Mother Lung cancer Skin cancer Sister Breast cancer Social History Alcohol intake: never Patient Tobacco Use Status: Current everyday Tobacco user Tobacco use type: Cigarette Cigarettes Per Day: 5 Years Smoked: (onset 13yo, 1/2-1ppd x 48yrs, 30+PYH) Questionnaire PHQ-9 Over the last 2 weeks, how often have you been bothered by any of the following problems? 1. Little interest or pleasure in doing things: not at all 2. Feeling down, depressed, or hopeless: not at all 3. Trouble falling or staying asleep, or sleeping too much: not at all 4. Feeling tired or having little energy: not at all 5. Poor appetite or overeating: not at all 6. Feeling bad about yourself - or that you are a failure or have let yourself or your family down: not at all 7. Trouble concentrating on things, such as reading the newspaper or watching television: not at all 8. Moving or speaking so slowly that other people could have noticed. Or the opposite - being so fidgety or restless that you have been moving around a lot more than usual: not at all 9. Thoughts that you would be better off or of hurting yourself in some way: not at all Total score: 0 Source: Developed by Drs. Leonidas Dodge, Lauren Menon, Nilson Morrell and colleagues, with an educational estefani from [employer]. Thrive Questionnaire Date Thrive assessed: 07/27/24 I am a: Patient What is your living situation today?: I have a steady place to live Within the past 12 months, did the food you bought not last and you didn't have the money to get more?: Never true Within the past 12 months, did you worry whether your food would run out before you got money to buy more?: Never true Do you have trouble paying for medicines?: No Do you have trouble getting transportation to medical appointments?: No Do you have trouble paying your heating and electricity bill?: No Do you have trouble taking care of your child, family member or friend?: No Do you have trouble with day-to-day activities such as bathing, preparing meals, shopping, managing finances, etc.?: No Are you currently unemployed and looking for a job?: No Are you interested in more education?: No Please select the resources that you would like help with: None THRIVE Score: 0 TABBY-7 AMB Questionnaire TABBY-7 Date TABBY - 7 assessed: 07/27/24 Feeling nervous, anxious, or on edge: 0 = Not at all Not being able to stop or control worryin = Not at all Worrying too much about different things: 0 = Not at all Trouble relaxin = Not at all Being so restless that it is hard to sit still: 0 = Not at all Becoming easily annoyed or irritable: 0 = Not at all Feeling afraid as if something awful might happen: 0 = Not at all Total TABBY-7 score (0-4 normal; 5-9 mild; 10-14 moderate; 15-21 severe): 0 Source: Developed by Drs. Leonidas Dodge, Lauren Menon, Nilson Morrell and colleagues, with an educational estefani from [employer]. Physical exam (Primary Care) Vital Signs: Last Vital Signs Temp 97.7 F 07/27/24 10:03 Pulse 71 07/27/24 10:03 Resp 16 07/27/24 10:03 BP 158/90 H 07/27/24 10:03 Pulse Ox 99 07/27/24 10:03 Oxygen Delivery Method Room Air 07/27/24 10:03 BMI result Body Mass Index 21.1 Tobacco/Smoking Status: Tobacco use Status Patient Tobacco Use Status Current everyday Tobacco 07/27/24 09:58 Tobacco use type Cigarette 07/27/24 09:58 PHQ-9: PHQ-9 Score PHQ-9: Total score 0 07/27/24 10:08 Thrive Assessment: Date of Thrive Assessment Date Thrive assessed 07/27/24 07/27/24 10:08 Coding Level of Care Code New Pt Level 4 (12516) Complex EM visit Add On G2211 Diagnoses PAD (peripheral artery disease) I73.9 HTN (hypertension) I10 GERD (gastroesophageal reflux disease) K21.9 Nicotine dependence, cigarettes, uncomplicated F17.210 COPD (chronic obstructive pulmonary disease) J44.9 Assessment & Plan Assessment & Plan (1) PAD (peripheral artery disease): Code(s): I73.9 - Peripheral vascular disease, unspecified Category: Medical Plan: Stable, no claudication. Continue ASA. Follow-up with vascular surgery as scheduled (2) HTN (hypertension): Code(s): I10 - Essential (primary) hypertension Category: Medical Plan: Controlled. Continue metoprolol 50 mg ER daily (3) GERD (gastroesophageal reflux disease): Code(s): K21.9 - Gastro-esophageal reflux disease without esophagitis Category: Medical (4) Nicotine dependence, cigarettes, uncomplicated: Comment: (current smoker onset 13yo, 1/2-1ppd x 48yrs, 30+PYH, +fam hx lung ca) Code(s): F17.210 - Nicotine dependence, cigarettes, uncomplicated Category: Medical (5) COPD (chronic obstructive pulmonary disease): Comment: severe emphysema on chest ct Code(s): J44.9 - Chronic obstructive pulmonary disease, unspecified Category: Medical Plan: Stable. Prescribed Breo Ellipta for maintenance to prevent exacerbation. Smoking cessation advised Plan Follow-up in the office in 6 months. Labs to be completed following visit. Labs to be completed several days prior to visit. Medications as prescribed. Referred for lung cancer screenings. Orders: Orders Basic Metabolic Panel Today E78.5 - Hyperlipidemia, unspecified, I10 - Essential (primary) hypertension, I73.9 - Peripheral vascular disease, unspecified, K21.9 - Gastro-esophageal reflux disease without esophagitis Lipid Panel Today E78.5 - Hyperlipidemia, unspecified, I10 - Essential (primary) hypertension, I73.9 - Peripheral vascular disease, unspecified, K21.9 - Gastro-esophageal reflux disease without esophagitis Prostate Specific Antigen Today E78.5 - Hyperlipidemia, unspecified, I10 - Essential (primary) hypertension, I73.9 - Peripheral vascular disease, unspecified, K21.9 - Gastro-esophageal reflux disease without esophagitis Complete Blood Count Auto Diff Today E78.5 - Hyperlipidemia, unspecified, I10 - Essential (primary) hypertension, I73.9 - Peripheral vascular disease, unspecified, K21.9 - Gastro-esophageal reflux disease without esophagitis Liver Panel Today E78.5 - Hyperlipidemia, unspecified, I10 - Essential (primary) hypertension, I73.9 - Peripheral vascular disease, unspecified, K21.9 - Gastro-esophageal reflux disease without esophagitis Basic Metabolic Panel 6 Months E78.5 - Hyperlipidemia, unspecified, I10 - Essential (primary) hypertension Lipid Panel 6 Months E78.5 - Hyperlipidemia, unspecified, I10 - Essential (primary) hypertension Referrals Pulmonology Referral Z08 - Encounter for follow-up examination after completed treatment for malignant neoplasm, Z85.118 - Personal history of other malignant neoplasm of bronchus and lung Medications: New fluticasone propionate 50 mcg/actuation administer into each nostril 2 sprays intranasal DAILY 16 grams 5RF fluticasone furoate-vilanterol 100-25 mcg/dose (Breo Ellipta) 1 inh inhalation Q24H 60 ea 5RF metoprolol succinate ER 50 mg PO DAILY 90 tabs 1RF Refilled omeprazole 20 mg PO DAILY 90 caps 1RF
[2024-07-27 10:03] VITALS: BP 158/90; PULSE 71; RESP 16; TEMP 36.5; O2SAT 99; BMI 21.1
[2024-07-27 10:21] VITALS: BP 136/80
== END 2024-07-27 10:21 | disposition home or self-care (01) ==
LOC: HO.HMCHD 09:09
PROVIDERS: PCP Internal Medicine; Visit Provider Physician Assistant
DX: I73.9 Peripheral vascular disease, unspecified (principal); I10 Essential (primary) hypertension; K21.9 Gastro-esophageal reflux disease without esophagitis; F17.210 Nicotine dependence, cigarettes, uncomplicated; J44.9 Chronic obstructive pulmonary disease, unspecified

== ENCOUNTER → 2024-07-27 09:08 | Outpatient (BNVA) | payer MEDICARE, SELFPAY | PROVIDERS: PCP Internal Medicine; Visit Provider Physician Assistant | DX: I73.9 Peripheral vascular disease, unspecified (principal); I10 Essential (primary) hypertension; K21.9 Gastro-esophageal reflux disease without esophagitis; J44.9 Chronic obstructive pulmonary disease, unspecified; F17.210 Nicotine dependence, cigarettes, uncomplicated; Z79.82 Long term (current) use of aspirin; Z79.899 Other long term (current) drug therapy | CPT/HCPCS: 99202 ==

== ENCOUNTER 2024-07-27 10:31 | Outpatient (REF) | payer MEDICARE, SELFPAY ==
[2024-07-27 13:26] LABS: MANUAL DIFF FLAG NO
[2024-07-27 13:41] LABS: Basophils Absolute Auto 0.1 X10*3/uL (0.0-0.2); Basophils Percent Auto 0.7 % (0-2); Eosinophils Absolute Auto 0.1 X10*3/uL (0.0-0.4); Eosinophils Percent Auto 1.1 % (0-4); Hematocrit 43.7 % (42.0-52.0); Hemoglobin 14.9 g/dl (14.0-18.0); Imm Gran Abs Auto 0.07 X10*3/uL (0.00-0.03); Imm Gran Pct Auto 0.5 % (0.0-0.4); Lymphocytes Absolute Auto 2.2 X10*3/uL (1.2-4.9); Lymphocytes Percent Auto 16.9 % (20-40); Mean Corpuscular HGB Conc 34.1 g/dl (31.0-36.0); Mean Corpuscular Hemoglobin 32.9 pg (27.0-33.0); Mean Corpuscular Volume 96.5 fL (80.0-98.0); Mean Platelet Volume 9.6 fL (9.4-12.4); Monocytes Percent Auto 7.9 % (2-11); Neutrophils Absolute Auto 9.3 x10*3/uL (2.0-8.3); Neutrophils Percent Auto 72.9 % (45-73); Platelet Count 318 X10*3/uL (160-400); Red Blood Count 4.53 X10*6/uL (4.60-5.80); Red Cell Distribution Width 12.7 % (11.0-16.0); White Blood Count 12.8 X10*3/uL (4.8-10.8)
[2024-07-27 14:48] LABS: Anion Gap 12 (12-20)
[2024-07-27 14:53] LABS: Alanine Aminotransferase 12 U/L (0-40); Albumin Level 4.8 g/dL (3.5-5.0); Alkaline Phosphatase 72 U/L (39-117); Aspartate Amino Transferase 15 U/L (5-37); Bilirubin Direct 0.2 mg/dL (0.0-0.5); Bilirubin Total 0.5 mg/dL (0.0-1.0); Blood Urea Nitrogen 15 mg/dL (9-16); Calcium 10.1 mg/dL (8.4-10.2); Carbon Dioxide 24 mmol/L (22-29); Chloride 106 mmol/L (96-108); Cholesterol 137 mg/dL (<200); Estimated Glomerular Filt Rate > 60; Glucose Random 107 mg/dL (60-115); HDL Cholesterol 54 mg/dL (>40); LDL Cholesterol Calculated 59 mg/dL (<100); Potassium 4.6 mmol/L (3.3-5.1); Sodium 137 mmol/L (135-145); Total Protein 7.9 g/dL (6.5-8.0); Triglycerides 123 mg/dL (<150)
== END 2024-07-27 10:32 | disposition home or self-care (01) ==
LOC: HO.10HDL 10:31
PROVIDERS: Visit Provider Physician Assistant
DX: I73.9 Peripheral vascular disease, unspecified (principal); I10 Essential (primary) hypertension; K21.9 Gastro-esophageal reflux disease without esophagitis; E78.5 Hyperlipidemia, unspecified; J44.9 Chronic obstructive pulmonary disease, unspecified; F17.210 Nicotine dependence, cigarettes, uncomplicated; Z79.82 Long term (current) use of aspirin; Z79.899 Other long term (current) drug therapy; Z12.5 Encounter for screening for malignant neoplasm of prostate
CPT/HCPCS: 36415; 80048; 80061; 80076; 84153; 85025; 96127; 99202

== ENCOUNTER 2025-02-11 10:22 | Outpatient (AMB) | payer MEDICARE, MEDICAID, SELFPAY ==
--- NOTE | 2025-02-11 10:25 | MHC.PC.OV ---
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 Required: No Accompanied by: Self / Same As Patient Allergies No Known Allergies Allergy (Mild, Verified 02/11/25 10:25) NOT APPLICABLE Tobacco use date assessed: 02/11/25 Fall risk assessment: No Falls in past year Last assessed Fall Risk: 02/11/25 Dental Screening Dental Screen Date: 02/11/25 Did you have a dental visit in the last 12 months?: Yes Did you have a dental problem in the last 6 months where you did not have access to dental care?: No Was dental information given to patient?: Patient has dentist HPI HPI Comments History of Present Illness Details 64-year-old male with history of peripheral artery disease, pulmonary nodules, COPD, GERD, hypertension, neurofibromatosis who is a current cigarette smoker presents to the office today for management of chronic conditions. Hypertension-blood pressure on recheck 136/80. Compliant with metoprolol 50 mg ER. BP at home SBP 120-130, DBP 70s-80s Hyperlipidemia-overdue for labs. On atorvastatin 10 mg daily COPD-not on any maintenance medications. Does continue smoking 1/2 pack of cigarettes per day but is working on cutting back. No recent exacerbations. Denies shortness of breath, wheezing. Pulse Ox 98-99% Pulmonary nodules-following for lung cancer screenings. Last CT 12/2023 showing stable 1.2 cm left apical nodule. No new or suspicious lesions. Due for CT Peripheral artery disease-following with vascular surgery. No claudication. On baby aspirin. Due for vascular appt Neurofibromatosis-stable, not bothersome. Follows with Dr. Werner if they do become bothersome Concerns: None Health maintenance: Lung cancer screening-due 12/2024, awaiting call back Last colonoscopy-12/2019 with tubular adenoma ROS: General: No fevers, malaise, unintentional weight loss HEENT: No blurred vision, diplopia. No sore throat, nasal congestion, rhinorrhea, sinus pain, ear pain Cardiovascular: No chest pain, palpitations, or leg edema Respiratory: No shortness of breath, wheezing, cough GI: No abdominal pain, nausea, vomiting, diarrhea, constipation, melena, hematochezia : No dysuria, hematuria, increased urinary frequency, decreased urinary output MSK: No myalgia, back pain Neuro: No headaches, weakness, paresthesias Skin: No rashes or lesions EXAM: Constitutional - Awake and Alert, No apparent distress Eyes - PERRLA, EOMI Cardiovascular - S1S2, RRR, No edema Respiratory - Normal lung expansion, Normal respiratory effort, No respiratory distress, CTA bilaterally Extremities - no calf tenderness bilaterally, no swelling Skin - Warm/Dry. Neurofibromatosis Neurological - Alert & oriented Psychological - Appropriate affect [facility] Medical History (Updated 07/27/24 @ 10:30 by SUZANNA Orosco) Hyperlipemia Nicotine dependence, cigarettes, uncomplicated Tubular adenoma of colon (~2001) Chronic headaches Neurofibromatosis GERD (gastroesophageal reflux disease) HTN (hypertension) Surgical History (Updated 07/25/24 @ 17:18 by Yasmine Elder) History of inguinal hernia repair History of excision of lesion History of colonoscopy (~01/09/20) History of esophagogastroduodenoscopy (EGD) History of mandibular surgery Family History Mother Lung cancer Skin cancer Sister Breast cancer Social History Housing: Other (Senior Housing) Alcohol intake: never Patient Tobacco Use Status: Current everyday Tobacco user Tobacco use type: Cigarette Cigarettes Per Day: 5 Years Smoked: (onset 13yo, 1/2-1ppd x 48yrs, 30+PYH) e-Cigarette/Vaping Use: Never Used service: No Current occupational status: disabled [place] [employer] [place] Cognitive needs: No Hearing needs: No Vision needs: Yes (Rx glasses) Questionnaire Thrive Questionnaire Date Thrive assessed: 07/27/24 TABBY-7 AMB Questionnaire TABBY-7 Date TABBY - 7 assessed: 07/27/24 Source: Developed by Drs. Leonidas Dodge, Lauren Menon, Nilson Morrell and colleagues, with an educational estefani from [employer]. Physical exam (Primary Care) Vital Signs: Last Vital Signs Temp 98.3 F 02/11/25 10:30 Pulse 62 02/11/25 10:30 Resp 16 02/11/25 10:30 BP 120/70 02/11/25 10:46 Pulse Ox 99 02/11/25 10:30 Oxygen Delivery Method Room Air 02/11/25 10:30 BMI result Body Mass Index 20.6 Tobacco/Smoking Status: Tobacco use Status Tobacco use date assessed 02/11/25 02/11/25 10:27 Patient Tobacco Use Status Current everyday Tobacco 02/11/25 10:27 Tobacco use type Cigarette 02/11/25 10:27 e-Cigarette/Vaping Use Never Used 02/11/25 10:33 Thrive Assessment: Date of Thrive Assessment Date Thrive assessed 07/27/24 02/11/25 10:27 Office Procedures Flu Questionnaire Does the patient have a severe egg allergy?: No Does the patient have severe life threatening allergies?: No Does the patient have a fever or illness today?: No Has the patient ever had Guillain-Salinas Syndrome?: No Has the patient ever had any past reaction to a flu shot?: No Immunizations Fluzone High-Dose (PF) 180 mcg/0.5 mL intramuscular syringe Performing Provider: SUZANNA Orosco [place] [facility] [place] [facility] Administered by: BINH Comer on 02/11/25 10:56 Dose Route Admin Location Dispensed Lot Number Expiration Date [facility] [place] 2[place] Animal Treatment Investigator 0.5 mL IM Left Deltoid 0.5 mL [id number] 08/20/25 [id number] [employer] Total Dispensed Waste 0.5 mL 0 % VIS Given Date VIS Provided VIS Publication Date 02/11/25 Single Vaccine 24 Eligibility Eligibility Date Funding Source Not [facility] Eligible 02/11/25 Private Coding Level of Care Code Est Pt Level 4 (21453) Add On Problem Visit Only Diagnoses PAD (peripheral artery disease) I73.9 HTN (hypertension) I10 GERD (gastroesophageal reflux disease) K21.9 Nicotine dependence, cigarettes, uncomplicated F17.210 COPD (chronic obstructive pulmonary disease) J44.9 Hyperlipemia E78.5 Assessment & Plan Assessment & Plan (1) PAD (peripheral artery disease): Code(s): I73.9 - Peripheral vascular disease, unspecified Category: Medical Plan: Stable, no claudication. Continue ASA and statin. Overdue for ultrasound of the lower extremities and he is given copy of order to reach out to scheduled. He is also advised to reach out to vascular surgery to schedule an appointment (2) HTN (hypertension): Code(s): I10 - Essential (primary) hypertension Category: Medical Plan: Controlled. Continue metoprolol 50 mg ER daily (3) GERD (gastroesophageal reflux disease): Code(s): K21.9 - Gastro-esophageal reflux disease without esophagitis Category: Medical Plan: Stable. Continue PPI (4) Nicotine dependence, cigarettes, uncomplicated: Comment: (current smoker onset 13yo, 1/2-1ppd x 48yrs, 30+PYH, +fam hx lung ca) Code(s): F17.210 - Nicotine dependence, cigarettes, uncomplicated Category: Medical Plan: Continue with efforts to quit smoking. Recommend decreasing cigarette smoking daily. Has not had success with nicotine replacement therapy (5) COPD (chronic obstructive pulmonary disease): Comment: severe emphysema on chest ct Code(s): J44.9 - Chronic obstructive pulmonary disease, unspecified Category: Medical Plan: Stable. Prescribed Breo Ellipta for maintenance to prevent exacerbation. Smoking cessation advised (6) Hyperlipemia: Code(s): E78.5 - Hyperlipidemia, unspecified Category: Medical Plan: At goal. Continue atorvastatin Plan Follow-up in the office in 6 months. Labs to be completed following visit. Labs to be completed several days prior to visit. Medications as prescribed. Advised to reach out to lung cancer screen and for arterial dupplex and vascular visit. Also referred for colonoscopy Orders: Orders CT lung screening Today F17.210 - Nicotine dependence, cigarettes, uncomplicated Prostate Specific Antigen Today E78.5 - Hyperlipidemia, unspecified, I10 - Essential (primary) hypertension, Z12.5 - Encounter for screening for malignant neoplasm of prostate Influenza 7530-2212 High Dose Immunization Today Z23 - Encounter for immunization Basic Metabolic Panel Today E78.5 - Hyperlipidemia, unspecified, I10 - Essential (primary) hypertension, Z12.5 - Encounter for screening for malignant neoplasm of prostate Lipid Panel Today E78.5 - Hyperlipidemia, unspecified, I10 - Essential (primary) hypertension, Z12.5 - Encounter for screening for malignant neoplasm of prostate Liver Panel Today E78.5 - Hyperlipidemia, unspecified, I10 - Essential (primary) hypertension, Z12.5 - Encounter for screening for malignant neoplasm of prostate Referrals Gastroenterology Referral D36.9 - Benign neoplasm, unspecified site, Z12.11 - Encounter for screening for malignant neoplasm of colon
[2025-02-11 10:30] VITALS: BP 172/98; PULSE 62; RESP 16; TEMP 36.8; O2SAT 99; BMI 20.6
[2025-02-11 10:46] VITALS: BP 120/70
--- OUTSIDE RECORDS SUMMARY | 2025-02-11 12:37 | XMS_ITS | Patient Health Record ---
Author Organization Leonidas Azul III, MD Address [address] [address] Care Team Providers Care Service Station Equipment Mechanic Name Role Phone Luis Carlos Chambers MD Primary Care Provider Dr. Leonidas Clark III Unavailable Allergies No Known Allergies Reason For Referral [...] Problem Status W/U Status Risk Notes Problem 48991009 Weight loss (R63.4) Active confirmed Weight loss is ominous for such a small pulmonary mass. We discussed diet and nutrition today. He may be a candidate for dry and abdomen all or Megace. A PET CT scan is pending to stage the tumor. Problem Hypertension (47271997) Hypertension (I10) Active confirmed His blood pressure is stable at this time and no change in his regimen as needed. Problem Neurofibromatosis (44865282) Neurofibromat osis, unspecified (Q85.00) Active confirmed He has a true genetic disease of neurofibromatos is. Problem 24029250 Tobacco dependence (F17.200) Active confirmed He was counseled to reduced her cigarette usage his most is possible case he needs pulmonary surgery. Problem Migraine (49634908) Migraine (G43.909) Active confirmed He will continue on the sumatriptan. He has had no migraines since his last visit. Problem 01497353 Non-recurrent bilateral inguinal hernia without obstruction or gangrene (K40.20) Active confirmed The hernias have not recurred and the scars are well-healed. They are asymptomatic. Problem 611360730 Mass of upper lobe of left lung [...] Insured Coverage Start Date Coverage End Date [facility] Plan [address] [address] [place] [address] [phone] [id number] JES MACK Self - patient is the insured 2 [place] [address] [place], [place] [id number] JES MACK Self - patient is the insured MEDICARE NGS [address] [place] [address] [id number] JES MACK Self - patient is the insured Medical (General) History Medical History History ICD Code Left upper lobe pulmonary mass Migraine G43.909 Hypertension I10 Neurofibromatosis Tobacco dependence Excised neurofibroma of the jaw Repaired bilateral inguinal hernias Pectus excavatum Weight loss Surgical History Surgery Date(Month/Year) hernia surgery [address] Leonidas fung of [facility] 2016 Resection of neurofibroma from mandible in childhood Bilateral inguinal herniorrhaphies, Dr. Ortiz
--- OUTSIDE RECORDS SUMMARY | 2025-02-11 12:37 | XMS_ITS | Patient Health Record ---
Author Organization [facility] Address [address] [place] [address] Care Team Providers Care Astrophysics Teacher Name Role Phone CONDE, NGA Primary Care Provider Unavailjennifer e Leonidas Box Unavailable [phone] Reason For Referral No Information Medications Medication SIG (Take, Route, Frequency, Duration) Notes Start Date End Date Status Amitriptyline & Diet Manage Pr 25 MG Miscellaneous Orally Activ e amLODIPine Besy-Benazepril HCl 5-10 MG Capsule 1 capsule Orally Once a day Active Omeprazole 20 MG Capsule Delayed Release 1 capsule Orally Once a day Active Ibuprofen 800 MG Tablet 1 tablet with fo od or milk as needed Orally Three times a day Active Dicyclomine HCl 10 MG Capsule 1-2 capsules Orally Four times a day as needed for abdominal cramps/bloating/discomfo rt; Duration: 90 Active Aspirin 81 MG Tablet Chewable 1 tablet Orally Once a day Active Butalbital-Acetaminophen 50-325 MG Tablet 1 tablet as needed Orally every 4 hrs Active Metoprolol Tartrate 50 MG Tablet 1 tablet with food Orally once a day Active Immunizations Vaccine Route Administration Date Status Comme nts Influenza Unknown 10/23/2019 Administered Social History Tobacco Use: Social History Observation Description Date Details (start date - stop date) Current Smoker NA - NA Social History Tobacco Use: Social Info Question Answer Notes Tobacco Use/Smoking Patient is a current smoker How often do you smoke cigarettes? every day How many cigarettes a day do you smoke? 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 Section Notes: Smoker-6 to 8 cigarettes/day ; 2 beers/week Smoker--trying to quit-none since 09/12/14; occasional beer Smoker 1 ppd; occasional bee r Problems Problem Type SNOMED Code ICD Code Onset Dates Problem Status W/U Status Risk Notes Problem Screening for malignant neoplasm of colon (930531082) Encounter for screening for malignant neoplasm of colon (Z12.11) Active confirmed Problem History of adenomatous polyp of colon (393255676) History of adenomatous polyp of colon (Z86.010) Active confirmed Problem Long-term current use of antiplatelet drug (586231991043200 ) Long-term use of aspirin therapy (Z79.82) Active confirmed Plan Of Treatment Future Test Test Name Order Date UPPER GI ENDOSCOPY 09/18/2014 COLONOSCOPY 09/18/2014 COLONOSCOPY 11/22/2019 Next Appt Details Provider Name:Leonidas Henry Isauro , 05/30/2025 10:40:00 AM, [address] [place] [address], [facility] [address], [place], [address], Insurance Providers Payer Name Payer Address Payer Phone Subscriber Number Group Number Insured Name Patient Relationship to Insured Coverage Start Date Coverage End Date [facility] [address] [place], [place] [id number] JES MACK Self - patient is the insured 4 Medical (General) History Medical History History ICD Code EGD and colon 02-08-2002-mil d GERD, normal duodenal biopsies, and 1 small tubular adenoma removed, respectively Colonoscopy 1996,12-10-2005, 10/2010, and 09/2014 neg. except for diverticulosis Neurofibromatosis Denies ND,DM,CVA,Lung disease,renal dise ase HTN Headaches 09/2014-EGD with a small HH, normal duodenal biopsies, gastric bx neg for Hpylori, no esophagitis, no [place]'s esophagus; negative screening colonoscopy GERD Surgical History Surgery Date(Month/Year) Jaw surgery Inguinal hernias X3 Neurofibroma tumors removed
== END 2025-02-11 10:58 | disposition home or self-care (01) ==
LOC: HO.HMCHD 10:22
PROVIDERS: PCP Internal Medicine; Visit Provider Physician Assistant
DX: I73.9 Peripheral vascular disease, unspecified (principal); I10 Essential (primary) hypertension; K21.9 Gastro-esophageal reflux disease without esophagitis; F17.210 Nicotine dependence, cigarettes, uncomplicated; J44.9 Chronic obstructive pulmonary disease, unspecified; E78.5 Hyperlipidemia, unspecified; Z23 Encounter for immunization

== ENCOUNTER → 2025-02-11 10:22 | Outpatient (BNVA) | payer MEDICARE, SELFPAY | PROVIDERS: PCP Internal Medicine; Visit Provider Physician Assistant | DX: I10 Essential (primary) hypertension (principal); I73.9 Peripheral vascular disease, unspecified; K21.9 Gastro-esophageal reflux disease without esophagitis; J44.9 Chronic obstructive pulmonary disease, unspecified; E78.5 Hyperlipidemia, unspecified; F17.210 Nicotine dependence, cigarettes, uncomplicated; Z23 Encounter for immunization | CPT/HCPCS: 90471; 90662; 99212 ==